=== PATIENT | male | born 1970 | race Caucasian/White ===

== ENCOUNTER 2019-03-29 16:43 | Emergency (ER) | payer MEDICAID ==
[~2019-03-29] VITALS: Ht 172.7 cm; Wt 79.1 kg
[2019-03-29 17:03] VITALS: Ht 172.7 cm; Wt 79.1 kg
[2019-03-29] MEDS ORDERED: LISINOPRIL20 MG PO (17:05)
[2019-03-29] MEDS ORDERED: HYDROCHLOROTH12.5 M1 PO (17:05)
[2019-03-29] MEDS ORDERED: HYDROCODON-ACE1 EAC7 PO (21:18)
[2019-03-29 21:58] VITALS: BP 135/89
== END 2019-03-29 22:00 | disposition home or self-care (01) ==
LOC: D.ER 16:43
DX: M25.552 Pain in left hip (principal); S76.012A Strain of muscle, fascia and tendon of left hip, initial encounter; X58.XXXA Exposure to other specified factors, initial encounter; Y93.89 Activity, other specified; Y92.89 Other specified places as the place of occurrence of the external cause

== ENCOUNTER 2020-01-15 10:33 | Observation (INO) | payer MEDICAID ==
[~2020-01-15] VITALS: Ht 172.7 cm; Wt 79.6 kg
[~2020-01-15 10:33] MED LIST: HYDROCHLOROTH12.5 M1 PO; HYDROCODON-ACE1 EAC7 PO; LISINOPRIL20 MG PO
[2020-01-15] MEDS ORDERED: ASPIRIN81 MG PO (10:42)
[2020-01-15 11:03] LABS: BASOPHILS 0.1 % (0-2); EOSINOPHILS 0.1 % (0-7); HEMATOCRIT 47.6 % (42.0-54.0); HEMOGLOBIN 16.2 g/dL (13.5-17.5); IMMATURE GRANULOCYTES 0.3 % (0-5); LYMPHOCYTES 5.8 % (15-50); MCH 32.5 pg (26.0-34.0); MCV 95.6 fL (80.0-100.0); MEAN PLATELET VOLUME 9.8 fL (7.4-10.4); MONOCYTES 4.1 % (2-11); NEUTROPHILS 89.6 % (40-80); PLATELET COUNT 281 10x3/uL (130-400); RBC 4.98 10x6/uL (4.20-6.10); RDW 13.5 % (11.5-14.5); WBC 16.4 10x3/uL (4.8-10.8)
[2020-01-15 11:06] LABS: CALC OSMOLALITY 282 mosm/kg (275-300); CALCIUM 9.1 mg/dL (8.5-10.1); CHLORIDE - SERUM 103 mmol/L (98-107); CREATININE - SERUM 1.2 mg/dL (0.6-1.3); GLUCOSE 125 mg/dL (74-106); POTASSIUM - SERUM 4.1 mmol/L (3.5-5.1); SODIUM 141 mmol/L (136-145); UREA NITROGEN 15 mg/dL (7-18); eGFR NON AFRICAN AMERICAN 68 mL/min (90-120)
[2020-01-15 11:20] LABS: BILIRUBIN NEGATIVE (NEGATIVE); GLUCOSE NEGATIVE (NEGATIVE); KETONE MODERATE mg/dL (NEGATIVE); NITRITE NEGATIVE (NEGATIVE); RED CELLS - URINE 0-5 /hpf (0-5); UROBILINOGEN NORMAL (NORMAL); WHITE CELLS - URINE 0-5 /hpf (NEGATIVE)
[2020-01-15 11:21] LABS: BACTERIA FEW /hpf (NEGATIVE); CALCIUM OXALATE CRYSTALS 0-5 /hpf (NONE SEEN); EPITHELIAL CELLS OCC /hpf (0-5)
[2020-01-15 11:24] LABS: ALBUMIN 3.9 g/dL (3.4-5.0); ALKALINE PHOSPHATASE 135 U/L (30-120); ALT (SGPT) 20 U/L (10-68); AMYLASE - SERUM 49 U/L (25-115); BILIRUBIN - TOTAL 0.46 mg/dL (0.2-1.3); LIPASE 87 U/L (73-393); PROTEIN - SERUM 7.4 g/dL (6.4-8.2); TROPONIN-I < 0.017 ng/mL (0.000-0.060)
[2020-01-15 12:00] VITALS: BP 136/96
--- NOTE | 2020-01-15 13:19 | NUR ---
CLEAR LIQUIDS GIVEN
[2020-01-15 14:00] VITALS: BP 139/96
[2020-01-15 15:30] VITALS: BP 135/91
--- NOTE | 2020-01-15 15:48 | NUR ---
REPORT TO JAIRON REBOLLAR
--- NOTE | 2020-01-15 16:00 | NUR ---
ADMIT TO ROOM # 2216, CONDITION STABLE
[2020-01-15 16:24] VITALS: BP 137/97; BMI 27.4
[2020-01-15 20:00] VITALS: BP 140/98
--- NOTE | 2020-01-15 20:00 | NUR ---
PT SITTING UP IN BED WITHOUT DISTRESS, AOX4. DENIES PAIN OR NAUSEA AT THIS TIME. TOLERATING CLEAR LIQUIDS. IV RIGHT FA INFUSING NS @ 100. DENIES NEEDS. CL IN REACH, WILL CTM
[2020-01-16] VITALS: BP 134/94
[2020-01-16 04:00] VITALS: BP 124/86
[2020-01-16 04:28] LABS: BASOPHILS 0.1 % (0-2); EOSINOPHILS 1.8 % (0-7); HEMATOCRIT 39.2 % (42.0-54.0); IMMATURE GRANULOCYTES 0.3 % (0-5); LYMPHOCYTES 25.2 % (15-50); MCH 31.5 pg (26.0-34.0); MCHC 32.7 g/dL (31.0-37.0); MCV 96.6 fL (80.0-100.0); MEAN PLATELET VOLUME 9.7 fL (7.4-10.4); NEUTROPHILS 65.6 % (40-80); RBC 4.06 10x6/uL (4.20-6.10); RDW 13.6 % (11.5-14.5)
[2020-01-16 04:34] LABS: HEMOGLOBIN 12.8 g/dL (13.5-17.5); PLATELET COUNT 224 10x3/uL (130-400)
[2020-01-16 04:51] LABS: CALCIUM 7.6 mg/dL (8.5-10.1); CARBON DIOXIDE 26.9 mmol/L (21.0-32.0); CHLORIDE - SERUM 106 mmol/L (98-107); GLUCOSE 102 mg/dL (74-106); SODIUM 139 mmol/L (136-145); eGFR NON AFRICAN AMERICAN 84 mL/min (90-120)
[2020-01-16 04:54] LABS: CALC OSMOLALITY 276 mosm/kg (275-300); UREA NITROGEN 10 mg/dL (7-18)
[2020-01-16 04:55] LABS: POTASSIUM - SERUM 2.9 mmol/L (3.5-5.1)
--- NOTE | 2020-01-16 07:49 | NUR ---
PT SITTING UP IN BED WATCHING TV, ALERT AND ORIENTED. IV LOCATED TO RIGHT AC RUNNING NS @ 100ML/HR. NO CURRENT S/S OF DISTRESS, DENIES CURRENT NEEDS, WILL CONT TO MONITOR.
[2020-01-16 09:28] VITALS: BP 139/101
[2020-01-16 13:43] VITALS: BP 137/99
[2020-01-16 16:53] VITALS: Ht 172.7 cm; Wt 79.6 kg
[2020-01-16] MEDS ORDERED: FLAGYL500 MG PO (16:55)
[2020-01-16] MEDS ORDERED: LEVAQUIN750 MG PO (16:55)
[2020-01-16] MEDS ORDERED: ZOFRAN4 MG PO (16:55)
--- NOTE | 2020-01-16 17:42 | MORECARE ---
CASE MANAGEMENT DISCHARGE SUMMARY PATIENT: BILL CARLSON UNIT: [id number] ADM DATE: 01/15/20 AGE: 49 : 68 SEX: M ROOM/BED: D.2216 AUTHOR: LEONCIO YEE PHYSICIAN: REFERRING PHYSICIAN: SABINA STRAUSS MD DATE OF SERVICE: 01/16/20 Discharge Plan Patient Name: BILL CARLSON [facility] [facility] 1970 Planned Disposition: Home or Self Care Anticipated Discharge Date: Discharge Date: Expected LOS: Initial Reviewer: [email or web address] Initial Review Date: 01/15/2020 Generated: 01/16/20 6:42 pm DCP- Discharge Planning Updated by [email or web address]: Svetlana Franco on 01/16/20 4:[address] PATIENT TO BE DISCHARGED TODAY, HE NEEDS A CARDIAC MRI. [facility] AND [facility] ARE THE ONLY ONES I KNOW OF WHO DO THEM, I SPOKE WITH PATIENT AND HE WOULD LIKE TO TRY [facility]. I CALLED THERE AND SPOKE WITH STEPHY. SHE STATED THAT DR DIAS WILL HAVE TO FILL OUT A INFORMATION SHEET AND I THEN WILL NEED TO FAX IT BACK TO THEM AND THEN THEY WOULD SCHEDULE IT. I EXPLAINED THIS TO THE PATIENT AND HIS SPOUSE OF THE ABOVE AND THEY UNDERSTAND THAT I WILL BE CALLING HIM WITH AN APPT TIME, I HOPE TOMORROW. I ALSO GAVE HIM MY BUSINESS CARD SO HE WOULD HAVE MY CONTACT. I LET IVANA PERES APN AWARE OF THIS TO MAKE SURE HE WAS OK WITH THAT AND HE WAS. I WILL FOLLOW UP WITH THE [facility] TOMORROW MORNING Patient Name: BILL CARLSON Page [phone] at 1742 All edits/amendments must be made on the electronic document DICTATION DATE: 01/16/201741 FUNERAL HOME ASSISTANT: KENYATTA 01/16/201741 RPT#: [id number] DC DATE: STATUS: ADM IN [facility] [address] [place] [address] END OF REPORT
--- NOTE | 2020-01-17 03:02 | EC ---
PATIENT:BILL CARLSON DATE OF SERVICE: 01/15/20 SEX: M MEDICAL RECORD: [id number] DATE OF : 68 LOCATION:D.MS Odell221 AGE OF PATIENT: 49 ADMISSION DATE: 01/15/20 REFERRING PHYSICIAN: INTERPRETING PHYSICIAN: XU OLSEN MD ECHOCARDIOGRAM REPORT ECHO CHARGES 4 ECHO COMPLETE Date: 01/16/20 CLINICAL DIAGNOSIS: ABNORMAL IMAGINA/MASS ECHOCARDIOGRAPHIC MEASUREMENTS (adult normal given) AC root (d.<3.7cm) 4.2 cm LV Septum d (<1.2 cm> 1.2 cm Valve Excursion 1.8 cm LV Septum (systole) 1.7 cm Left Atria (s.<4.0cm> 2.7 cm LVPW d(<1.2cm) 1.1 cm RV (d.<2.3cm) 3.3 cm LVPW (sytole) 1.8 cm LV diastole(<5.6CM) 5.2 cm MV E-F(>70mm/sec) cm LV systole 3.4 cm LVOT Diameter 2.1 cm MV exc.(>10mm) cm Est.ejection fraction (50-75%) % DOPPLER: LVIT cm/sec A 100 cm/sec E 55.0 cm/sec LA cm/sec RVSP 17.2 mmHg LVOT 95.0 cm/sec AOP1/2T m/s Asc. Ao 149 cm/sec RVOT 51.0 cm/sec RA cm/sec PA 69.0 cm/sec AV Gradient Peak 8.9 mmHg AV Mean 4.8 mmHg AV Area 1.8 cm MV Gradient Peak 4.9 mmHg MV Mean 2.6 mmHg MV Area cm COMMENTS: Appliance Repair Technician: 1 AUGUSTINE SNEEDOE Battery Tester: 3 Dr. Parsons TAPE# PACS Pericardial Effusion N DATE OF SERVICE: Adequate 2D, color flow imaging, spectral Doppler, and M-Mode. LVH is present. LV internal dimensions are normal. Wall motion is normal. EF is greater than or equal to 55%. Aortic valve is tricuspid. No evidence of stenosis by Doppler interrogation. Left atrium is normal. Mitral valve shows no prolapse. Trivial MR. Right-sided chambers are grossly normal. Trivial TR. Incidental note is made of an interatrial septal bowing without shunt seen at the atrial or ventricular level. Either bronchogenic retention cyst or ECHOCARDIOGRAM REPORT [id number] BILL CARLSON pericardial cyst is noted adjacent to the right atrium. There is no hemodynamic significance. NTS:[id number] Voice Confirmation ID: [id number] DOCUMENT ID: [id number] XU OLSEN MD at 0302 CC: [id number] DICTATION DATE: 01/16/20 1607 WILD ANIMAL CARETAKER: 01/17/20 0159 DIS IN 01/16/20 [address] [place] [address]
--- NOTE | 2020-01-17 09:04 | MORECARE ---
CASE MANAGEMENT DISCHARGE SUMMARY PATIENT: BILL CARLSON UNIT: [id number] ADM DATE: 01/15/20 AGE: 49 : 68 SEX: M ROOM/BED: D.2216 AUTHOR: LEONCIO YEE PHYSICIAN: REFERRING PHYSICIAN: SABINA STRAUSS MD DATE OF SERVICE: 01/17/20 Discharge Plan Patient Name: BILL CARLSON Facility: [facility]:[place] : 1970 Planned Disposition: Home or Self Care Anticipated Discharge Date: Discharge Date: 01/16/2020 Expected LOS: Initial Reviewer: [email or web address] Initial Review Date: 01/15/2020 Generated: 01/17/20 10:04 am DCP- Discharge Planning Updated by [email or web address]: Svetlana Franco on 01/16/20 4:[address] PATIENT TO BE DISCHARGED TODAY, HE NEEDS A CARDIAC MRI. [facility] AND [facility] ARE THE ONLY ONES I KNOW OF WHO DO THEM, I SPOKE WITH PATIENT AND HE WOULD LIKE TO TRY [facility]. I CALLED THERE AND SPOKE WITH STEPHY. SHE STATED THAT DR DIAS WILL HAVE TO FILL OUT A INFORMATION SHEET AND I THEN WILL NEED TO FAX IT BACK TO THEM AND THEN THEY WOULD SCHEDULE IT. I EXPLAINED THIS TO THE PATIENT AND HIS SPOUSE OF THE ABOVE AND THEY UNDERSTAND THAT I WILL BE CALLING HIM WITH AN APPT TIME, I HOPE TOMORROW. I ALSO GAVE HIM MY BUSINESS CARD SO HE WOULD HAVE MY CONTACT. I LET IVANA PERES APN AWARE OF THIS TO MAKE SURE HE WAS OK WITH THAT AND HE WAS. I WILL FOLLOW UP WITH THE [facility] TOMORROW MORNING Last DP export: 01/16/20 4:42 pm Patient Name: BILL CARLSON Page [phone] at 0904 All edits/amendments must be made on the electronic document DICTATION DATE: 01/17/20903 REFERENCE INVESTIGATOR: KENYATTA 01/17/20903 RPT#: [id number] DC DATE:01/16/20 STATUS: DIS IN [facility] [address] [place] [address] END OF REPORT
--- NOTE | 2020-01-17 15:00 | MORECARE ---
CASE MANAGEMENT DISCHARGE SUMMARY PATIENT: BILL CARLSON UNIT: [id number] ADM DATE: 01/15/20 AGE: 49 : 68 SEX: M ROOM/BED: D.2216 AUTHOR: LEONCIO YEE PHYSICIAN: REFERRING PHYSICIAN: SABINA STRAUSS MD DATE OF SERVICE: 01/17/20 Discharge Plan Patient Name: BILL CARLSON Facility: [facility]:[place] : 1970 Planned Disposition: Home or Self Care Anticipated Discharge Date: Discharge Date: 01/16/2020 Expected LOS: Initial Reviewer: [email or web address] Initial Review Date: 01/15/2020 Generated: 01/17/20 3:59 pm Comments DCP- Discharge Planning Updated by [email or web address]: Svetlana Franco on 01/17/20 1:[address] I have set patients cardiac MRI with [facility] CONF# [id number] for January 19 @ 0800 I spoke with Sabine and faxed everything to [phone] I also called the patient to let him know I also called Dr Diaz and let him know that it was set up DCP- Discharge Planning Updated by [email or web address]: Svetlana Franco on 01/16/20 4:[address] PATIENT TO BE DISCHARGED TODAY, HE NEEDS A CARDIAC MRI. [facility] AND [facility] ARE THE ONLY ONES I KNOW OF WHO DO THEM, I SPOKE WITH PATIENT AND HE WOULD LIKE TO TRY [facility]. I CALLED THERE AND SPOKE WITH STEPHY. SHE STATED THAT DR DIAS WILL HAVE TO FILL OUT A INFORMATION SHEET AND I THEN WILL NEED TO FAX IT BACK TO THEM AND THEN THEY WOULD SCHEDULE IT. I EXPLAINED THIS TO THE PATIENT AND HIS SPOUSE OF THE ABOVE AND THEY UNDERSTAND THAT I WILL BE CALLING HIM WITH AN APPT TIME, I HOPE TOMORROW. I ALSO GAVE HIM MY BUSINESS CARD SO HE WOULD HAVE MY CONTACT. I LET IVANA PERES APN AWARE OF THIS TO MAKE SURE HE WAS OK WITH THAT AND HE WAS. I WILL FOLLOW UP WITH THE [facility] TOMORROW MORNING Last DP export: 01/17/20 8:05 am Patient Name: BILL CARLSON Page [phone] at 1500 All edits/amendments must be made on the electronic document DICTATION DATE: 01/17/201458 DISCOTHEQUE DANCER: KENYATTA 01/17/201458 RPT#: [id number] DC DATE:01/16/20 STATUS: DIS IN [facility] [address] [place] [address] END OF REPORT
== END 2020-01-16 18:06 | disposition home or self-care (01) ==
LOC: D.ER 10:33 → D.MS 13:17 → OBSVTIME 16:00 → D.MS 01-16 18:06
PROVIDERS: Family Medicine; ADMIT Family Medicine; ATTEND Family Medicine
DX: K52.9 Noninfective gastroenteritis and colitis, unspecified (principal); I10 Essential (primary) hypertension; F17.200 Nicotine dependence, unspecified, uncomplicated; R10.9 Unspecified abdominal pain; E78.5 Hyperlipidemia, unspecified

== ENCOUNTER → 2020-02-12 08:39 | Outpatient (CLI) | payer MEDICAID ==
[2020-01-16 16:53] VITALS: BMI 27.4
[~2020-02-12 08:39] MED LIST changes: +ASPIRIN81 MG PO; +FLAGYL500 MG PO; +LEVAQUIN750 MG PO; +ZOFRAN4 MG PO
== END | disposition home or self-care (01) ==
LOC: D.HCCARDIO 08:30
PROVIDERS: ATTEND Internal Medicine Cardiovascular Disease
DX: I20.9 Angina pectoris, unspecified (principal)

== ENCOUNTER 2020-02-24 06:36 | Outpatient (CLI) | payer MEDICAID ==
[~2020-02-24] VITALS: Ht 172.7 cm; Wt 76.2 kg
--- NOTE | ~2020-02-24 | HEMODYNAMI ---
PATIENT:BILL CARLSON MEDICAL RECORD: [id number] : 68 LOCATION:DEMRE ADMISSION DATE: 02/24/20 Generatedon:02/24/20209:02 Patient name: BILL CARLSON Patient #: [id number] : 1970 Date of study: 02/24/2020 Page: Of Hemodynamic Procedure Report Patient Data Patient Demographics Procedure consent was obtained First Name: BILL Gender: Male Last Name: ALDO : 1970 Patient #: [id number] Age: 49 year(s) Race: Unknown SSN: [id number] Additional ID: [id number] Contact details Address: [address] [place] [address] State: [place] City: [facility] [place] Zip code: [address] Past Medical History Allergies Allergen Reaction Date Comments Reported Other allergy 02/24/2020 PCN, SULFA Admission Admission Data Admission Date: 02/24/2020 Admission Time: 6:36 Arrival Date: 02/24/2020 Arrival Time: 0:00 Admit Source: Other Insurance Payor: Private health insurance [facility] #: [id number] Height (in.): 67.72 BSA: 1.89 (m2) Height (cm.): 172 BMI: 25.69 (kg/m2) Weight (lbs.): 167.55 Weight (kg.): 76 Lab Results Lab Result Date: 02/24/2020 Lab Result Time: 0:00 Biochemistry Name Units Result Min Max BUN mg/dl 12 --(-*--)-- 7 18 Creatinine mg/dl 0.9 --(-*--)-- 0.6 1.3 CBC Name Units Result Min Max Hemoglobin g/dl 15.7 --(--*-)-- 13.5 17.5 Procedure Procedure Types Cath Procedure Diagnostic Procedure LHC LHC w/Coronaries Sedation Charges Moderate Sedation up to 15 minutes Procedure Description Procedure Date Procedure Date: 02/24/2020 Procedure Start Time: 8:46 Procedure End Time: 8:58 Procedure Staff Name Function Roly Reeves MD Performing Physician Cristopher Lopes RN Nurse Olga Cobb RT Scrub Randolph Downey RT Monitor Procedure Data Cath Procedure Fluoroscopy Diagnostic fluoroscopy Total fluoroscopy Time: 1.5 time: 1.5 min min Diagnostic fluoroscopy Total fluoroscopy dose: 409 dose: 409 mGy mGy Contrast Material Contrast Material Type Amount (ml) Isovue 300 71 Entry Location Entry Primary Successful Side Size Upsize Upsize Entry Closure Succes sful Closure Location (Fr) 1 (Fr) 2 (Fr) Remarks Device Remarks Femoral Right 5 Fr Exoseal artery Estimated blood loss: 5 ml Diagnostic catheters Device Type Used For End Catheter Placement MULTIPACK JL 4.0 5Fr Procedure catheter MULTIPACK 3DRC 5Fr Procedure catheter MULTIPACK Pigtail 5 Fr Procedure catheter Procedure Complications No complications Procedure Medications Medication Administration Route Dosage 0.9% NaCl I.V. 100 ml/hr Oxygen etCO2 Nasal cannula 2 l/min Heparin Flush Bag added to field 2 bags (1000units/500ml NS) Lidocaine 2% added to field 20 Versed I.V. 2 mg Fentanyl I.V. 100 mcg Benadryl I.V. 50 mg Hemodynamics Rest BSA: 1.89 (m2) HGB: 15.7 (g/dl) O2 Consumption: Estimated: 230.14 (ml/min) O2 Co nsumption indexed: Estimated:121.77 (ml/min/m) Heart Rate: 76 (bpm) Pressure Samples Time Site Value (mmHg) Purpose Heart Use Rate(bpm) 8:51 LV 96/0,2 Snapshot 78 8:52 AO 103/66(81) Pullback 77 8:52 LV 91/2,3 Pullback 77 Gradients Valve Time Site 1 Site 2 Mean SEP/DFP Peak To Heart Use (mmHg) (sec/min) Peak Rate (mmHg) (bpm) Aortic 8:52 LV AO 0 4 0 77 91/2,3 103/66(81) Calculations Valve P-P Mean Valve Index Valve Source Name Gradient Area Flow (cm2) Aortic 0 0 0 0 Snapshots Pre Cath Intra NCS Post Cath Vital Signs Time Heart Resp SPO2 etCO2 NIBP (mmHg) Rhythm Pain Sedation Rate (ipm) (%) (mmHg) Status Level (bpm) 8:31:20 82 7 99 25.4 117/89(103) NSR 0 (11) 10(A) , No pain 8:35:22 79 14 97 40.4 115/90(101) NSR 0 (11) 10(A) , No pain 8:39:24 88 31 92 41.1 121/92(96) NSR 0 (11) 10(A) , No pain 8:43:30 78 25 94 42.6 120/87(100) NSR 0 (11) 10(A) , No pain 8:47:37 76 19 95 12.7 111/81(95) NSR 0 (11) 9(A) , No pain 8:51:41 77 25 93 37.4 125/81(93) NSR 0 (11) 9(A) , No pain 8:55:47 77 20 93 41.1 116/78(103) NSR 0 (11) 10(A) , No pain Medications Time Medication Route Dose Verified Delivered Reason Notes Effe ctiveness by by 8:34:17 0.9% NaCl I.V. 100 Cristopher Cristopher Per ml/hr Marianne Lopes physician RN RN 8:34:29 Oxygen etCO2 2 Cristopher Cristopher for low 02 Nasal l/min Lorigan Lorigan sats cannula RN RN 8:34:41 Heparin Flush added 2 Cristopher Cristopher used for Bag to bags Lorigan Marianne procedure (1000units/500ml field RN RN NS) 8:34:52 Lidocaine 2% added 20ml Cristopher Cristopher for local to vial Lorigan Lorigan anesthetic field RN RN 8:41:59 Versed I.V. 2 mg Cristopher Cristopher for Lorigan Lorigan sedation RN RN 8:42:09 Fentanyl I.V. 100 Cristopher Cristopher for mcg Lorigan Lorigan sedation RN RN 8:42:22 Benadryl I.V. 50 mg Cristopher Cristopher Per Marianne Lopes physician RN wire rope fabrication supervisor Log Time Note 8:07:21 Cristopher Lopes RN sent for patient. Start room use. 8:07:57 Arrival Date: 02/24/2020 12:00:00 AM 8:08:11 Admit Source: Other 8:08:16 Insurance Payor : Private health insurance 8:08:41 Patient Height : 67.72 inches 8:08:45 Patient Weight : 167.55 lbs 8:09:10 Lab Result : BUN 12 mg/dl 8:09:10 Lab Result : Creatinine 0.9 mg/dl 8:09:10 Lab Result : Hemoglobin 15.7 g/dl 8:11:52 Procedure Status Elective Heart Cath (OP). 8:11:54 Time tracking: Regular hours (M-F 7:00 - 5:00) 8:11:59 Plan of Care:Hemodynamics will remain stable., Cardiac rhythm will remain stable., Comfort level will be maintained., Respiratory function will remain adequate., Patient/ family verbilizes understanding of procedure., Procedure tolerated without complication., Recovers from procedure without complications.. 8:12:07 Patient received from Pre/Post Procedure Room to CCL 1 Alert and oriented. Tansferred to table in Supine position. 8:12:10 Signed procedure consent form obtained from patient. 8:12:12 Warm blankets applied, and zandra hugger turned on for patient comfort. 8:12:14 Correct patient and procedure confirmed by team. 8:30:16 ECG and BP/O2 sat monitors applied to patient. 8:30:18 Vital chart was started 8:30:20 Baseline sample Acquired. 8:30:23 Rhythm: sinus rhythm 8:31:48 Full Disclosure recording started 8:32:06 H&P Date Dictated: 01/30/2020 Within 30 days and on chart., H&P Addendum completed by physician on day of procedure. (MUST COMPLETE FOR ALL OUTPATIENTS). 8:32:07 Pre-procedure instructions explained to patient. 8:32:07 Pre-op teaching completed and patient verbalized understanding. 8:32:09 Family in waiting room. 8:32:11 Patient NPO since Midnight. 8:34:17 0.9% NaCl 100 ml/hr I.V. was administered by Cristopher Lopes RN; Per physician; Verbal order read back and verified. 8:34:29 Oxygen 2 l/min etCO2 Nasal cannula was administered by Cristopher Lopes RN; for low 02 sats; Verbal order read back and verified. 8:34:41 Heparin Flush Bag (1000units/500ml NS) 2 bags added to field was administered by Cristopher Lopes RN; used for procedure; Verbal order read back and verified. 8:34:52 Lidocaine 2% 20ml vial added to field was administered by Cristopher Lopes RN; for local anesthetic; Verbal order read back and verified. 8:36:47 Patient allergic to Other allergyPCN, SULFA 8:36:52 Is the patient allergic to Iodine/contrast media? No. 8:36:53 Is patient on blood thinner?No 8:36:55 Patient diabetic? No. 8:36:58 Previous problem with sedation/anesthesia? No ? 8:37:00 Snore? Yes 8:37:01 Sleep apnea? No 8:37:02 Deviated septum? No 8:37:02 Opens mouth fully? Yes 8:37:03 Sticks out tongue? Yes 8:37:04 Airway obstruction? No ? 8:37:09 Dentures? No ? 8:37:15 Pre procedure: right posterior tibial pulse 2+ Normal; easily identifiable; not easily obliterated 8:37:17 Modified Hieu's test Ulnar > 7 seconds. 8:37:19 Patient pain scale 0/10 ?. 8:37:27 IV patent on arrival in left forearm with 0.9% NaCl at [facility]. 8:37:42 Lab results completed and on chart. 8:40:51 Risk of Mortality: 0.1% 8:40:54 Risk of blood transfusion: 0.3% 8:40:57 Risk of SEVERIANO: 0.2% 8:41:02 Right groin area was prepped with chlora-prep and draped in sterile fashion 8:41:04 Alarms reviewed by R. N. 8:41:05 Sharps counted by scrub and verified by R.N. 8:41:08 Use device set Femoral Dx 8:41:09 ACIST Syringe (63903) opened to sterile field. 8:41:09 Bag Decanter (2002) opened to sterile field. 8:41:10 Medline Cath Pack ([id number]) opened to sterile field. 8:41:11 ACIST Hand Control (10756) opened to sterile field. 8:41:11 ACIST Manifold (27772) opened to sterile field. 8:41:12 Tegaderm 4 x 4 (1626W) opened to sterile field. 8:41:12 DIAGNOSTIC Multipack 5Fr catheter set (IP6063) opened to sterile field. 8:41:14 SHEATH 5FR [place] (DFB958) opened to sterile field. 8:41:14 EMERALD Guide Wire (502-455) opened to sterile field. 8:41:21 Physician arrived 8:: --------ALL STOP TIME OUT------ 8:41:22 Final Timeout: patient, procedure, and site verified with staff and physician. All members of the team are in agreement. 8:41:23 Right groin site verified by team. 8:41:26 Fire Safety Assessment: A--An alcohol-based skin anteseptic being used preoperatively., C--Open oxygen or nitrous oxide is being used., D--An ESU, laser, or fiber-optic light is being used. 8:41:28 Physical assessment completed. ASA score P 2 - A patient with mild systemic disease as per Roly Reeves MD. 8:41:34 1) 90+ Normal kidney functon but urine findings or structural abnormalities or genetic trait point to kidney disease. 8:41:36 Maximum allowable contrast dose (3.7 X eGFR X 0.75)250 ml. 8:41:39 Sedation plan: IV Moderate Sedation Medication:Versed, Fentanyl 8:41:59 Versed 2 mg I.V. was administered by Cristopher Lopes RN; for sedation; Verbal order read back and verified. 8:42:09 Fentanyl 100 mcg I.V. was administered by Cristopher Lopes RN; for sedation; Verbal order read back and verified. 8:42:22 Benadryl 50 mg I.V. was administered by Cristopher Lopes RN; Per physician; Verbal order read back and verified. 8:44:02 Zero performed for pressure channel P1 8:44:09 Zero performed for pressure channel P1 8:44:26 Zero performed for pressure channel P1 8:44:39 Zero performed for pressure channel P1 8:46:41 Procedure started. 8:46:44 Local anesthetic to right femoral artery with Lidocaine 2% by Roly Reeves MD.INITIAL ACCESS ONLY 8:46:50 A 5 Fr sheath was inserted into the Right Femoral artery 8:46:54 A MULTIPACK JL 4.0 5Fr catheter was advanced over the wire and used for Procedure. 8:46:56 LCA angiography performed. 8:46:57 Catheter exchanged over wire. 8:47:01 A MULTIPACK 3DRC 5Fr catheter was advanced over the wire and used for Procedure. 8:47:06 RCA angiography performed. 8:49:55 Catheter exchanged over wire. 8:49:59 A MULTIPACK Pigtail 5 Fr catheter was advanced over the wire and used for Procedure. 8:51:41 LV gram done using SNELL 8::43 Injector settings: Ml/sec: 10, Volume: 20, 8:51:45 LV hemodynamics recorded. 8:52:05 EF : 55 % 8:52:06 Catheter removed. 8:53:33 EXOSEAL 5Fr (EX500) opened to sterile field. 8:53:43 Sheath removed intact; hemostasis achieved with Exoseal to the Right Femoral artery. 8:53:45 Procedure ended.(Physican Out) 8:54:51 Fluoroscopy time 01.50 minutes. 8:54:55 Flurop Dose total: 409 8:54:55 Fluoroscopy dose: 409 mGy 8:55:00 Dose Area Product 77666 mGy/cm. 8:55:11 Contrast amount:Isovue 300 71ml. 8:55:13 Maximum allowable dose exceeded? No. 8:55:14 Sharps counted by scrub and verified by R.N. 8:55:15 Insertion/operative site no bleeding no hematoma. 8:55:17 Post-op/insertion site Right Femoral artery dressed using a 4 x 4 and Tegaderm. 8:55:20 Post right femoral artery:stable, soft, clean and dry 8:55:21 Post Procedure Pulses reassessed and unchanged 8:55:23 Post-procedure physical assessment completed. ASA score P 2 - A patient with mild systemic disease as per Roly Reeves MD. 8:55:25 Post procedure rhythm: unchanged. 8:55:27 Estimated blood loss: 5 ml 8:55:29 Post procedure instruction explained to patient.Patient verbalizes understanding. 8:55:29 Patient needs reinforcement of post procedure teaching. 8:56:16 Procedure type changed to Cath procedure, Diagnostic procedure, LHC, [facility] w/Coronaries, Sedation Charges, Moderate Sedation up to 15 minutes 8:58:06 Procedure and supply charges have been captured, reviewed, submitted and are correct. 8:58:09 Procedure Complication : No complications 8:58:10 Vital chart was stopped 8:58:12 [facility] Findings: MVD- CABG consult 8:58:15 Operative report dictated upon procedure completion. 8:58:16 See physician's report for complete and final results. 8:58:17 Report given to Pre/Post Procedure Room. 8:58:23 Patient transfered to Pre/Post Procedure Room with Stretcher. 8:58:25 Procedure ended. 8:58:25 Full Disclosure recording stopped 8:58:30 End room use (Document Last) Device Usage Item Name Manufacture Quantity Catalog Hospital Part Current Minimal L ot# / Number Charge Number Stock Stock Serial# Code ACIST Acist 1 21578 [id number] 249630 [id number] 20 Syringe Medical (04383) Systems Inc Bag Microtek 1 2001S 189458 65382 930122 5 Decanter Medical Inc. () Medline Medline 1 [id number] 641128 12704 723569 5 Cath Pack ([id number]) ACIST Hand Acist 1 44666 619720 280879 452590 5 Control Medical (25474) Systems Inc ACIST Acist 1 80197 703751 758472 099996 5 Manifold Medical (20594) Systems Inc Tegaderm 4 3M 1 1626W 057454 870053 929630 5 x 4 (1626W) DIAGNOSTIC Cardinal 1 EE8798 432257 47448 576220 30 Multipack Health 5Fr catheter set (GH2294) SHEATH 5FR Terumo 1 MET423 612705 559708 149644 5 [place] (MTF856) EMERALD Cardinal 1 502-455 069884 155123 920219 5 Guide Wire [facility] (502-455) MULTIPACK Cardinal 1 764580 5 JL 4.0 5Fr Health catheter MULTIPACK Cardinal 1 127446 5 3DRC 5Fr Health catheter MULTIPACK Cardinal 1 040218 5 Pigtail 5 Health Fr catheter EXOSEAL 5Fr Cardinal 1 EX500 954405 647580 486640 10 (EX500) Health Signature Audit [place] Stage Time Signature Unsigned Intra-Procedure 02/24/2020 Cristopher 9:01:34 AM Marianne RN; Randolph Downey RT(R); Roly Reeves MD [address] [place] [address]
[2020-02-24] MEDS ORDERED: MULTI-DAY VITAM1 TAB PO (06:55)
[2020-02-24] MEDS ORDERED: OMEGA-3100 MG PO (06:55)
[2020-02-24 07:22] LABS: HEMATOCRIT 46.4 % (42.0-54.0); HEMOGLOBIN 15.7 g/dL (13.5-17.5); LYMPHOCYTES 22.2 % (15-50); MCHC 33.8 g/dL (31.0-37.0); MCV 94.7 fL (80.0-100.0); MEAN PLATELET VOLUME 9.2 fL (7.4-10.4); NEUTROPHILS 72.7 % (40-80); PLATELET COUNT 245 10x3/uL (130-400); RDW 12.9 % (11.5-14.5); WBC 8.4 10x3/uL (4.8-10.8)
[2020-02-24 07:24] VITALS: BP 108/83; BMI 25.5
[2020-02-24 07:36] LABS: ALT (SGPT) 22 U/L (10-68); CALC OSMOLALITY 282 mosm/kg (275-300); CALCIUM 8.5 mg/dL (8.5-10.1); CARBON DIOXIDE 28.1 mmol/L (21.0-32.0); CHLORIDE - SERUM 106 mmol/L (98-107); CHOL - HDL RATIO 4.8 ratio (2.3-4.9); CHOLESTEROL, TOTAL 163 mg/dL (0-200); CREATININE - SERUM 0.9 mg/dL (0.6-1.3); GLUCOSE 101 mg/dL (74-106); HDL CHOLESTEROL 34 mg/dL (32-96); LDL CHOLESTEROL 99 mg/dL (0-100); LDL-HDL RATIO 2.9 ratio (1.5-3.5); POTASSIUM - SERUM 3.7 mmol/L (3.5-5.1); SODIUM 142 mmol/L (136-145); TRIGLYCERIDE 150 mg/dL (30-200); UREA NITROGEN 12 mg/dL (7-18); eGFR NON AFRICAN AMERICAN > 90 mL/min (90-120)
--- NOTE | 2020-02-24 09:16 | NUR ---
PT RECEIVED VIA STRETCHER FROM TOOL RADIAL DRILL PRESS SET UP OPERATOR FOR RECOVERY. PT SLEEPING, BUT VERBALLY AROUSALBE. IV PATENT INFUSING VIA L ARM PER ORDERS. PT PLACED ON CARDIAC MONITORS AND O2 VIA NC AT 2L. HR NSR RATE 80, BP 102/77, RR 17, SAT 98. 5FR EXOCELE TO R GROIN, DRESSING CDI NO S/S HEMATOMA OR BLEEDING NOTED. LEG PINK AND WARM, PEDAL PULSES PALPABLE. CALL LIGHT IN REACH
--- NOTE | 2020-02-24 09:30 | NUR ---
PT RESTING COMFORTABLY, DENIES PAIN OR NEEDS. R GROIN SOFT, DRESSING CDI NO S/S HEMATOMA. VSS. CALL LIGHT IN REACH
--- NOTE | 2020-02-24 10:02 | NUR ---
R GROIN SOFT, DRESSING CDI NO S/S HEMATOMA OR BLEEDING. PT MORE AWAKE, HOB ELEVATED, PO FLUIDS GIVEN. PT DENIES PAIN OR DISCOMFORT. O2 REMOVED, SAT ON ROOM AIR 97. CALL LIGHT IN REACH
--- NOTE | 2020-02-24 11:02 | NUR ---
DISCHARGE INSTRUCTIONS REVIEWED W PT, HE VERBALIZED UNDERSTANDING. IV REMOVED W CATH INTACT, MONITORS REMOVED. GROIN SOFT, DRESSING CDI NO S/S HEMATOMA NOTED. PT UP TO DRESS FOR DISCHARGE. WAITING ON DR FITZGERALD TO DISCUSS POSSIBLE SURGERY.
--- NOTE | 2020-02-24 11:20 | NUR ---
DR. FITZGERALD AND HIS NURSE AT BS.
--- NOTE | 2020-02-24 11:42 | NUR ---
PT AMBULATED TO BR, VOIDED W/O DIFFICULITY. PT THEN DISCHARGED VIA TO FAMILY WAITING IN PRIVATE VEHICLE. PT HAD ALL BELONGINGS AND DISCHARGE PAPERWORK.
[2020-02-24 15:19] VITALS: Ht 172.7 cm; Wt 76.2 kg
--- NOTE | 2020-02-25 01:27 | OP ---
PATIENT NAME: BILL CARLSON MEDICAL RECORD: [id number] :68 LOCATION:D.CAT ADMISSION DATE: SURGEON: XU OLSEN MD DATE OF OPERATION: 02/24/2020 PROCEDURE: Left heart catheterization, selective coronary angiography, right femoral artery approach. CATHETERS: A 5-Kittitian sheath, 5/4 left and right Janis, 5/4 pig. The procedure was tolerated. The patient returned to the chan, sheath was removed. Adequate hemostasis and ExoSeal device placed. FINDINGS: Left ventriculography in 30-degree SNELL view: Normal wall motion and normal systolic function. CORONARY ANATOMY: LEFT MAIN: Left main is free of disease. LAD: Has some aneurysmal dilatation somewhat ectatic with an 80% stenosis in its mid portion. This is a smaller size LAD with diagonal being probably bigger diagonal, bigger diameter, not reaching the apex. CIRCUMFLEX: Small circumflex free of disease. RIGHT CORONARY ARTERY: Has a large proximal cardiac aneurysm with ROMAN flow distally. There is also a napkin ring lesion just past this. IMPRESSION: Large right coronary aneurysm. The LAD obviously is amenable to percutaneous intervention. However, I suspect the coronary aneurysm will need to be ligated and bypassed in the interim. We will talk with Dr. Hou about revascularization of the LAD either percutaneously or at the same time as ligation and bypassing the right. TRANSINT:[id number] Voice Confirmation ID: [id number] DOCUMENT ID: [id number] XU OLSEN MD at 0127 CC: [id number] DICTATION DATE: 02/24/20 0910 TILE MOLDER: 02/24/202006 DEP CLI 02/24/[address] [address]
== END 2020-02-24 11:40 | disposition home or self-care (01) ==
LOC: D.CATH 06:36
PROVIDERS: ATTEND Internal Medicine Interventional Cardiology
DX: I25.10 Atherosclerotic heart disease of native coronary artery without angina pectoris (principal); Z72.0 Tobacco use; E78.5 Hyperlipidemia, unspecified; I31.8 Other specified diseases of pericardium; I10 Essential (primary) hypertension

== ENCOUNTER 2020-03-05 09:53 | Inpatient (IN) | payer MEDICAID ==
[~2020-03-05] VITALS: Ht 172.7 cm; Wt 79.6 kg
[~2020-03-05 09:53] MED LIST changes: +MULTI-DAY VITAM1 TAB PO; +OMEGA-3100 MG PO
[2020-03-05] MEDS ORDERED: CHANTIX0.5 MG PO (10:37)
[2020-03-05 12:35] LABS: BILIRUBIN NEGATIVE (NEGATIVE); GLUCOSE NEGATIVE (NEGATIVE); KETONE NEGATIVE (NEGATIVE); NITRITE NEGATIVE (NEGATIVE); UROBILINOGEN NORMAL (NORMAL)
[2020-03-05 12:45] LABS: BASOPHILS 0.3 % (0-2); EOSINOPHILS 1.1 % (0-7); HEMATOCRIT 47.6 % (42.0-54.0); HEMOGLOBIN 15.8 g/dL (13.5-17.5); IMMATURE GRANULOCYTES 0.4 % (0-5); MCHC 33.2 g/dL (31.0-37.0); MCV 96.4 fL (80.0-100.0); MEAN PLATELET VOLUME 9.8 fL (7.4-10.4); MONOCYTES 5.8 % (2-11); NEUTROPHILS 70.4 % (40-80); PLATELET COUNT 247 10x3/uL (130-400); RBC 4.94 10x6/uL (4.20-6.10); RDW 13.3 % (11.5-14.5)
[2020-03-05 13:07] LABS: ALBUMIN 3.7 g/dL (3.4-5.0); ALKALINE PHOSPHATASE 127 U/L (30-120); ALT (SGPT) 25 U/L (10-68); BILIRUBIN - TOTAL 0.32 mg/dL (0.2-1.3); CALC OSMOLALITY 270 mosm/kg (275-300); CALCIUM 8.9 mg/dL (8.5-10.1); CARBON DIOXIDE 27.4 mmol/L (21.0-32.0); CHLORIDE - SERUM 103 mmol/L (98-107); CHOLESTEROL, TOTAL 163 mg/dL (0-200); CREATININE - SERUM 0.9 mg/dL (0.6-1.3); GLUCOSE 90 mg/dL (74-106); PHOSPHOROUS 3.9 mg/dL (2.5-4.9); POTASSIUM - SERUM 3.9 mmol/L (3.5-5.1); PROTEIN - SERUM 6.9 g/dL (6.4-8.2); SODIUM 136 mmol/L (136-145); T4 THYROXIN - FREE 1.26 ng/dL (0.76-1.46); THYROID STIMULATING HORMONE 1.47 uIU/mL (0.36-3.74); UREA NITROGEN 11 mg/dL (7-18); URIC ACID 4.9 mg/dL (2.6-7.2); eGFR NON AFRICAN AMERICAN > 90 mL/min (90-120)
[2020-03-05 13:38] LABS: INR 1.01 (0.85-1.17); PROTIME 13.2 SECONDS (11.6-15.0)
[2020-03-16] VITALS (46 sets, daily range): BP systolic 95–142; BP diastolic 45–100; BMI 25.7; BMI 24.1
[2020-03-16] MEDS ORDERED: VITAMIN C500 M1 PO (06:07)
[2020-03-16 06:13] LABS: BASOPHILS 0.2 % (0-2); EOSINOPHILS 1.6 % (0-7); HEMATOCRIT 45.2 % (42.0-54.0); HEMOGLOBIN 15.2 g/dL (13.5-17.5); IMMATURE GRANULOCYTES 0.1 % (0-5); LYMPHOCYTES 18.2 % (15-50); MCH 32.1 pg (26.0-34.0); MCHC 33.6 g/dL (31.0-37.0); MCV 95.6 fL (80.0-100.0); MEAN PLATELET VOLUME 9.6 fL (7.4-10.4); MONOCYTES 7.2 % (2-11); NEUTROPHILS 72.7 % (40-80); PLATELET COUNT 249 10x3/uL (130-400); RBC 4.73 10x6/uL (4.20-6.10); RDW 13.6 % (11.5-14.5); WBC 9.5 10x3/uL (4.8-10.8)
[2020-03-16 06:49] LABS: APTT 28.4 SECONDS (22.8-39.4); INR 0.97 (0.85-1.17); PROTIME 12.9 SECONDS (11.6-15.0)
[2020-03-16 06:54] LABS: ALBUMIN 3.6 g/dL (3.4-5.0); ALKALINE PHOSPHATASE 117 U/L (30-120); ALT (SGPT) 25 U/L (10-68); BILIRUBIN - TOTAL 0.25 mg/dL (0.2-1.3); CALC OSMOLALITY 284 mosm/kg (275-300); CALCIUM 8.9 mg/dL (8.5-10.1); CARBON DIOXIDE 25.5 mmol/L (21.0-32.0); CHLORIDE - SERUM 108 mmol/L (98-107); CHOLESTEROL, TOTAL 151 mg/dL (0-200); GLUCOSE 103 mg/dL (74-106); POTASSIUM - SERUM 3.8 mmol/L (3.5-5.1); PROTEIN - SERUM 6.8 g/dL (6.4-8.2); SODIUM 143 mmol/L (136-145); T4 THYROXIN - FREE 1.28 ng/dL (0.76-1.46); THYROID STIMULATING HORMONE 2.39 uIU/mL (0.36-3.74); UREA NITROGEN 13 mg/dL (7-18); URIC ACID 4.4 mg/dL (2.6-7.2); eGFR NON AFRICAN AMERICAN 84 mL/min (90-120)
--- NOTE | 2020-03-16 15:32 | NUR ---
RT AT BEDSIDE DECREASED RR ON VENT TO 4. PATIENT TOLERATING WELL. SPO2 99%, RESPIRATIONS 18 NON LABORED. NURSE AT BEDSIDE.
--- NOTE | 2020-03-16 15:45 | NUR ---
VENT CHANGED TO CPAP PER RT. PATIENT TOLERATING WELL. NURSE AT BEDSIDE. AT BEDSIDE.
--- NOTE | 2020-03-16 17:02 | NUR ---
RT AT BEDSIDE. INCENTIVE DONE REACHED 500-750. NO DISTRESS NOTED. NURSE AT BEDSIDE.9
--- NOTE | 2020-03-16 19:10 | NUR ---
PT RECEIVED WITH EYES CLOSED AND CHEST RISING. EASILY AWOKEN TO VERBAL STIMULI. RIGHT IJ WITH PLASMALYTE AT 100ML/HR AND AMIODARONE AT 0.5MG/MIN. CHEST TUBES ANTERIOR Y'D AND POSTERIOR SINGLE. CHINA DRAIN COMPRESSED. DRESSING C/D/I. DUARTE WITH CLEAR YELLOW URINE. VITAL SIGNS STABLE. N/C 4LPM. BEEN HAVING ICE CHIPS, ADVANCED TO WATER, TOLERATED WELL. WILL CONTINUE TO OBSERVE.
--- NOTE | 2020-03-16 21:25 | NUR ---
PT RECEIVE SCHEDULED MEDICATIONS PER MAR. PT UP WITH ASSIST TO BATHROOM WITH URINE AND LOOSE BM. DAUGHTER AT BEDSIDE. CALL LIGHT IN REACH. WILL CONTINUE TO OBSERVE.
--- NOTE | 2020-03-16 21:31 | NUR ---
CALLED, GAVE PASSCODE. UPDATE GIVEN. PT RESTING WITH EYES CLOSED OFF AND ON. VITAL SIGNS STABLE. CALL LIGHT IN REACH. WILL CONTINUE TO OBSERVE.
[2020-03-17] VITALS (41 sets, daily range): BP systolic 100–138; BP diastolic 59–88; Ht 172.7 cm; Wt 79.6 kg
[2020-03-17 00:33] LABS: BILIRUBIN NEGATIVE (NEGATIVE); GLUCOSE NEGATIVE (NEGATIVE); KETONE SMALL mg/dL (NEGATIVE); NITRITE NEGATIVE (NEGATIVE); UROBILINOGEN NORMAL (NORMAL)
--- NOTE | 2020-03-17 00:37 | NUR ---
URINE COLLECTED AND SENT TO LAB. VITALS STABLE. PT RESTING WITH EYES CLOSED AND CHEST RISING. EASILY AWOKEN TO VERBAL STIMULI. WILL CONTINUE TO OBSERVE.
--- NOTE | 2020-03-17 02:00 | NUR ---
PT SAT UP ON SIDE OF BED AND DANGLE FEET. BACK IN BED, TOLERATED WELL.
[2020-03-17 05:57] LABS: HEMATOCRIT 38.1 % (42.0-54.0); HEMOGLOBIN 12.4 g/dL (13.5-17.5); MCH 31.2 pg (26.0-34.0); MCHC 32.5 g/dL (31.0-37.0); MCV 95.7 fL (80.0-100.0); MEAN PLATELET VOLUME 9.7 fL (7.4-10.4); RBC 3.98 10x6/uL (4.20-6.10); RDW 14.2 % (11.5-14.5)
[2020-03-17 06:06] LABS: WBC 17.8 10x3/uL (4.8-10.8)
[2020-03-17 06:24] LABS: ALBUMIN 2.8 g/dL (3.4-5.0); ALKALINE PHOSPHATASE 72 U/L (30-120); ALT (SGPT) 19 U/L (10-68); BILIRUBIN - TOTAL 0.28 mg/dL (0.2-1.3); CALCIUM 7.4 mg/dL (8.5-10.1); CARBON DIOXIDE 23.2 mmol/L (21.0-32.0); CHLORIDE - SERUM 107 mmol/L (98-107); POTASSIUM - SERUM 3.7 mmol/L (3.5-5.1); PROTEIN - SERUM 5.4 g/dL (6.4-8.2); SODIUM 140 mmol/L (136-145); UREA NITROGEN 11 mg/dL (7-18); eGFR NON AFRICAN AMERICAN 84 mL/min (90-120)
[2020-03-17 06:26] LABS: CALC OSMOLALITY 281 mosm/kg (275-300); GLUCOSE 173 mg/dL (74-106)
--- NOTE | 2020-03-17 07:00 | NUR ---
PT UP TO CHAIR AT BEDSIDE. TOLERATED WELL.
--- NOTE | 2020-03-17 09:01 | NUR ---
0700 PT RECIEVED UP IN CHAIR, A LINE AND DUARTE DCD TIP INTACT, R IJ CVL DRESSING CDI, SEE IV FLOWSHEET, SUBSTERNAL TPM WIRES ATTACHED, TPM OFF, CT WITH 2 Y'D TOGETHER AND ONE SINGLE, BLOODY DRAINAGE, 20CM SUCTION NO AIR LEAK, CHINA DRAIN COMPRSSED WITH BLOODY DRAINAGE, RLE HARVEST SITES OPEN TO AIR, TEDS/SCDS IN PLACE, WILL CONTINUE TO MONITOR 0900 TOOK AM MEDS WITHOUT DIFFICULTY, ATE JELLO WITH BREAKFAST
--- NOTE | 2020-03-17 12:35 | OP ---
PATIENT NAME: BILL CARLSON MEDICAL RECORD: [id number] :68 LOCATION:D.CVI D.CV02 ADMISSION DATE:03/16/20 SURGEON: KIARA FITZGERALD MD DATE OF OPERATION: 03/16/2020 SURGEON: Kiara Fitzgerald MD PROCEDURES PERFORMED: 1. Coronary artery bypass graft times 2 (left internal mammary to LAD, reverse saphenous vein graft from aorta to posterior descending artery). 2. Repair and excision of right coronary artery aneurysm. 3. Endoscopic saphenous vein harvest. PREOPERATIVE DIAGNOSIS: Coronary artery disease and large right coronary artery aneurysm. POSTOPERATIVE DIAGNOSIS: Coronary artery disease and large right coronary artery aneurysm. ANESTHESIA: General endotracheal anesthesia. ESTIMATED BLOOD LOSS: Total cardiopulmonary bypass with Cell Saver retransfusion. COMPLICATIONS: None. SPECIMENS: Right coronary artery aneurysm free wall and thrombus. CONDITION: Stable. DISPOSITION: CV ICU. COMPLICATIONS: None. OPERATIVE FINDINGS: 1. Transesophageal echocardiography revealed good contractility, but left ventricular hypertrophy and dilated heart prior to cardiopulmonary bypass 6.7 cm left ventricular end-diastolic dimension, significantly reduced after cardiopulmonary bypass. 2. A 7 cm right coronary artery aneurysm with significant amount of thrombus and the central flow channel. The thrombus was removed, most of the free wall excised. Entry and exit point of the right coronary artery were severely calcified, not amenable to interposition graft at that point. Therefore, they were oversewn with pledgeted and running sutures and one small conal branch was oversewn with #7-0. The aneurysm cavity was later closed so it would not interfere with the right coronary graft. The right coronary was calcified throughout down past the bifurcation of the PDA and PL. Proximal portion of both of which were also calcified. PDA was a 1.5 mm vessel with severe disease, anastomosis and plaque. 3. Left internal mammary artery was a good conduit. The LAD was a 1.5 mm severely diseased vessel, calcified past the bifurcation of the large diagonal, so the anastomosis was taken off, the mid distal LAD, which was a 1.5 mm vessel with severe disease. Good Doppler signal after anastomosis, after reversal of OPERATIVE REPORT [id number] BILL CARLSON heparin to both grafts. 4. Severe bilateral lung hyperexpansion. 5. Small circumflex branches not amenable for bypass. Procedure indication is right coronary aneurysm and severe LAD stenosis as well as severe distal right coronary artery stenosis. DESCRIPTION OF PROCEDURE: The patient was brought to the operating suite. General anesthesia was obtained, the patient was prepped and draped. Greater saphenous vein harvested endoscopically of the right lower extremity. Side branches were divided with electrocautery. The vessel ligated proximally and distally and removed. Side branches were clipped and then sites were oversewn. The leg was irrigated and closed in 2 layers. Mediastinotomy incision was made. Subcutaneous tissue divided with electrocautery. The sternum was divided with a saw. Left hemisternum was elevated. Left lower gutter was entered. Left internal mammary and veins were taken down as a pedicle graft. Sternal retractor was placed. Pericardium was opened. Heparin was given. Aorta was cannulated. A dual stage venous cannula was able to be inserted into the right atrial appendage by slight upward traction on the aorta not disturbing the large right coronary artery aneurysm in the proximal vessel. The patient was cooled. Antegrade cardioplegic cannula was inserted. Crossclamp was placed. Cardioplegia was given antegrade and this repeated including down the completed vein graft at 15 to 20-minute intervals. The aneurysm was opened. Inflow and exit point were identified. Thrombus was removed. Thorough irrigation was undertaken and the only one conal branch was identified and oversewn. Inflow and outflow were oversewn with pledgeted and running sutures and were hemostatic when cardioplegia was given in the aorta. The distal anastomosis was performed in standard technique and internal mammary distal was also performed in a standard technique. The patient was rewarmed. Single proximal anastomosis was performed. Aortic root was de-aired. Proximal anastomosis tied down. Vein graft de-aired and flow restored. Proximal and distal anastomotic sites inspected for bleeding. The free wall of the aneurysm sac was removed and then the aneurysm cavity was closed. The patient was stable for rewarming, cardiopulmonary bypass. The patient was decannulated. The cannula sites were oversewn with pledgeted sutures. Protamine was given. Thorough irrigation was undertaken. Graft lay appropriately. Left chest was evacuated and irrigated. Right chest was suctioned. Drains were placed in both pleural cavity as well as the mediastinum. Atrial and ventricular pacing wires were placed. Pericardial fat was loosely reapproximated. Internal mammary harvest site inspected for bleeding. Sternum was closed with wires. Fascia was closed. Subcutaneous tissue was closed. Skin was closed. Dermabond was placed. The needle and sponge counts were reported as correct. The patient was taken to ICU in stable condition. TRANSINT:[id number] Voice Confirmation ID: [id number] DOCUMENT ID: [id number] OPERATIVE REPORT [id number] BILL CARLSON, KIARA Parra MD at 1235 CC: ESPERANZA GEE M.D. and RODNEY MENDES MD [id number] DICTATION DATE: 03/16/20 1719 DEFENSE TRAVEL ADMINISTRATOR: 03/16/20 2358 ADM IN [facility] [address] [id number]
--- NOTE | 2020-03-17 14:57 | NUR ---
CTS DCD BY DR FITZGERALD, SUBSTERNAL DRESSING CHANGED
--- NOTE | 2020-03-17 18:24 | NUR ---
1100 ATE 25% LUNCH TRAY 1630 AMBULATED WITH THERAPY 1730 ATE 25% DINNER TRAY
--- NOTE | 2020-03-17 19:32 | NUR ---
PT RECEIVED UP IN CHAIR WATCHING TV. COMPLAINS OF PAIN WITH PRN MEDICATION GIVEN PER OCT. VITAL SIGNS STABLE. RIGHT IJ SALINE LOCKED. CH[place] DRAIN COMPRESSED, WITH TPM WIRES COILED AND DRESSING C/D/I. CALL LIGHT IN REACH. WILL CONTINUE TO OBSERVE.
--- NOTE | 2020-03-17 23:03 | MORECARE ---
CASE MANAGEMENT DISCHARGE SUMMARY PATIENT: BILL CARLSON UNIT: [id number] ADM DATE: 03/16/20 AGE: 49 : 68 SEX: M ROOM/BED: D.02 AUTHOR: LEONCIO YEE PHYSICIAN: REFERRING PHYSICIAN: KIARA FITZGERALD MD DATE OF SERVICE: 03/17/20 Discharge Plan Patient Name: BILL CARLSON Facility: [facility]:[place] : 1970 Planned Disposition: Home Anticipated Discharge Date: Discharge Date: Expected LOS: Initial Reviewer: [email or web address] Initial Review Date: 03/16/2020 Generated: 03/18/20 12:02 am Comments DCP- Discharge Planning Updated by [email or web address]: La Gustafson on 03/17/20 10:[address] Patient Name: BILL CARLSON Admission Status: Elective Accout number: [id number] Admission Date: 03-16-2020 : 1970 Admission Diagnosis: Attending: KIARA FITZGERALD Current LOS: 1 Anticipated DC Date: Planned Disposition: Home [place] Insurance: [place] PR[place] [facility] Discharge Planning Comments: CM met with patient to complete initial dc planning assessment. CM educated patient on the CM role and verbal consent given by patient to complete assessment. Patient lives at home with family. Patient is independent. At discharge patient plans to return home and feels this is a safe discharge. CM discussed availability of home health, rehab services, and medical equipment. Patient will have family to transport home. Patient denied known discharge needs at this time. CM will continue to follow and will assist as needed with dc plans/needs. Water Main Inspector: La Gustafson DCPIA - Discharge Planning Initial Assessment Updated by [email or web address]: La Gustafson on 03/17/20 11:00 pm * Is the patient Alert and Oriented? Yes * How many steps to enter\exit or inside your home? * PCP CINTHYA * Pharmacy [facility] * Preadmission Environment Home with Family * ADLs Independent * Equipment Cane * Other Equipment WALKER * List name and contact numbers for known caregivers / representatives who currently or will assist patient after discharge: GLENYS NARAYAN [phone] * Verbal permission to speak to the caregivers and representatives has been obtained from the patient. Yes * Community resources currently utilized None * Additional services required to return to the preadmission environment? No * Can the patient safely return to the preadmission environment? Yes * Has this patient been hospitalized within the prior 30 days at any hospital? No Patient Name: BILL CARLSON Page [id number] at 2303 All edits/amendments must be made on the electronic document DICTATION DATE: 03/17/202301 FACILITIES CLERK: KENYATTA 03/17/202301 RPT#: [id number] DC DATE: STATUS: ADM IN [facility] [address] [place] [address] END OF REPORT
[2020-03-18] VITALS (24 sets, daily range): BP systolic 107–131; BP diastolic 69–92
--- NOTE | 2020-03-18 01:45 | NUR ---
PT WITH EYES OPEN WATCHING TV. URINAL EMPTIED. COMPLAINS OF PAIN WITH PRN MEDICATION GIVEN PER MAR. WILL CONTINUE TO OBSERVE.
--- NOTE | 2020-03-18 06:04 | NUR ---
SUBSTERNAL DRESSING CHANGED. PT TOLERATED WELL.
--- NOTE | 2020-03-18 06:32 | NUR ---
BATH GIVEN AND PT UP IN CHAIR. TOLERATED WELL. WILL CONTINUE TO OBSERVE
[2020-03-18 06:42] LABS: HEMATOCRIT 36.2 % (42.0-54.0); HEMOGLOBIN 11.6 g/dL (13.5-17.5); MCH 30.8 pg (26.0-34.0); MEAN PLATELET VOLUME 10.1 fL (7.4-10.4); RBC 3.77 10x6/uL (4.20-6.10); RDW 14.2 % (11.5-14.5); WBC 16.6 10x3/uL (4.8-10.8)
[2020-03-18 06:43] LABS: ALBUMIN 2.7 g/dL (3.4-5.0); ALKALINE PHOSPHATASE 68 U/L (30-120); ALT (SGPT) 23 U/L (10-68); BILIRUBIN - TOTAL 0.61 mg/dL (0.2-1.3); CALC OSMOLALITY 272 mosm/kg (275-300); CARBON DIOXIDE 27.8 mmol/L (21.0-32.0); CHLORIDE - SERUM 103 mmol/L (98-107); GLUCOSE 132 mg/dL (74-106); POTASSIUM - SERUM 3.9 mmol/L (3.5-5.1); PROTEIN - SERUM 5.9 g/dL (6.4-8.2); SODIUM 136 mmol/L (136-145); UREA NITROGEN 11 mg/dL (7-18); eGFR NON AFRICAN AMERICAN 84 mL/min (90-120)
--- NOTE | 2020-03-18 07:35 | NUR ---
SHIFT ASSESSMENT COMPLETE. PATIENT DENIES ANY NEEDS AT THIS TIME. CALL LIGHT WITHIN REACH, BED IN LOW POSITION, AND WILL CONTINUE TO MONITOR.
--- NOTE | 2020-03-18 09:30 | NUR ---
PATIENT STOOD AT CHAIR FOR COUPLE MINUTES WITH MINIMAL ASSISTANCE. PATIENT DENIES ANY DIZZINESS OR OTHER NEEDS AT THIS TIME. CALL LIGHT WITHIN REACH, BED IN LOW POSITION, AND WILL CONTINUE TO MONITOR.
--- NOTE | 2020-03-18 10:36 | NUR ---
Nutrition Follow-up: POD 2 CABG. Tolerating regular diet; reports eating <=50% of breakfast this AM. C/o altered taste. -BM; +flatus. Diet: Regular Wt: 159.6# (03/18); 158# (03/16) Last BM: 03/15 Labs noted: Glu 132, Ca 8.0, Alb 2.7 Meds noted: Micro K, KCl, Colace, Senokot -Encourage PO intake and honor food preferences within diet restrictions. -Monitor wt. -RD following.
--- NOTE | 2020-03-18 11:00 | NUR ---
REASSESSMENT COMPLETE. NO CHANGES FROM PREVIOUS ASSESSMENT.
--- NOTE | 2020-03-18 13:00 | NUR ---
PATIENT SITTING UP IN CHAIR. CONSUMED APPROX 75% OF LUNCH. DENIES ANY NEEDS AT THIS TIME. CALL LIGHT WITHIN REACH, AND WILL CONTINUE TO MONITOR.
--- NOTE | 2020-03-18 15:00 | NUR ---
REASSESSMENT COMPLETE. NO DISTRESS NOTED. CALL LIGHT WITHIN REACH.
--- NOTE | 2020-03-18 17:30 | NUR ---
PATIENT WANTS TO SIT UP IN CHAIR LONGER. CALL LIGHT WITHIN REACH. URINATED APPROX. 600ML OF CL YELLOW URINE.
--- NOTE | 2020-03-18 19:00 | NUR ---
REPORT RECEIVED. PT UP IN CHAIR AT BEDSIDE. STANDY BY ASSIST GIVEN TO BED. PT STATES PAIN AFTER GETTING INTO BED /10. PRN PAIN MEDICATION GIVEN. VITAL SIGNS STABLE. CALL LIGHT IN REACH. WILL CONTINUE TO OBSERVE.
--- NOTE | 2020-03-18 21:20 | NUR ---
SCHEDULED MEDICATIONS GIVNE PT TOLERATED WELL. VITAL SIGNS STABLE. NO NEEDS MADE KNOWN. CALL LIGHT IN REACH. WILL CONTINUE TO OBSERVE.
--- NOTE | 2020-03-18 22:50 | NUR ---
PT RESTING WITH EYES CLOSED AND CHEST RISING. EASILY AWOKEN TO VERBAL STIMULI. VITAL SIGNS STABLE. URINAL EMPTIED. CALL LIGHT IN REACH. WILL CONTINUE TO OBSERVE.
[2020-03-19] VITALS (24 sets, daily range): BP systolic 113–144; BP diastolic 74–95
--- NOTE | 2020-03-19 00:11 | NUR ---
WATER GIVEN PER REQUEST. NO OTHER NEEDS MADE KNOWN. CALL LIGHT IN REACH. WILL CONTINUE TO OBSERVE.
--- NOTE | 2020-03-19 02:43 | NUR ---
PT RESTING WITH EYES CLOSED AND CHEST RISING. NO S/S OF DISTRESS. CALL LIGHT IN REACH. WILL CONTINUE TO OBSERVE.
[2020-03-19 06:10] LABS: HEMATOCRIT 31.9 % (42.0-54.0); HEMOGLOBIN 10.5 g/dL (13.5-17.5); MCH 31.4 pg (26.0-34.0); MCHC 32.9 g/dL (31.0-37.0); MCV 95.5 fL (80.0-100.0); RBC 3.34 10x6/uL (4.20-6.10); RDW 14.1 % (11.5-14.5)
--- NOTE | 2020-03-19 06:49 | NUR ---
SUBSTERNAL DRESSING CHANGED PER PROTOCOL. TOLERATED WELL. UP TO BEDSIDE CHAIR. CALL LIGHT IN REACH. WILL CONTINUE TO OBSERVE.
[2020-03-19 06:59] LABS: ALBUMIN 2.4 g/dL (3.4-5.0); ALKALINE PHOSPHATASE 64 U/L (30-120); ALT (SGPT) 22 U/L (10-68); BILIRUBIN - TOTAL 0.51 mg/dL (0.2-1.3); CALC OSMOLALITY 274 mosm/kg (275-300); CALCIUM 7.7 mg/dL (8.5-10.1); CARBON DIOXIDE 27.5 mmol/L (21.0-32.0); CHLORIDE - SERUM 103 mmol/L (98-107); CREATININE - SERUM 0.8 mg/dL (0.6-1.3); GLUCOSE 114 mg/dL (74-106); POTASSIUM - SERUM 3.3 mmol/L (3.5-5.1); PROTEIN - SERUM 5.6 g/dL (6.4-8.2); SODIUM 137 mmol/L (136-145); UREA NITROGEN 12 mg/dL (7-18); eGFR NON AFRICAN AMERICAN > 90 mL/min (90-120)
--- NOTE | 2020-03-19 07:30 | NUR ---
PATIENT SITTING UP IN CHAIR. BREAKFAST GIVEN. SHIFT ASSESSMENT COMPLETE. NO DISTRESS NOTED. CALL LIGHT WITHIN REACH, BED IN LOW POSITION, AND WILL CONTINUE TO MONITOR.
--- NOTE | 2020-03-19 09:34 | NUR ---
PATIENT UP AND WALKED WITH PT. BACK TO ROOM UP IN CHAIR. TOLERATED WELL.
--- NOTE | 2020-03-19 14:17 | NUR ---
DR FITZGERALD PULLED CHINA DRAIN, PT TOLERATED WELL. NEW DRESSING APPLIED PER MD ORDER.
--- NOTE | 2020-03-19 14:33 | NUR ---
3RD TIME PATIENT IS UP TO BATHROOM FOR BM. PATIENT REQUIRES MINIMAL ASSIST FOR TRANSITIONING.
--- NOTE | 2020-03-19 18:35 | NUR ---
DR. FITZGERALD NOTIFIED OF TEMP OF 102.6, HR >110, AND RR >20. NEW ORDERS WERE RECEIVED.
--- NOTE | 2020-03-19 18:50 | NUR ---
BEDSIDE SHIFT REPORT COMPLETED, SHIFT ASSESSMENT COMPLETED, PT INDEPENDENT AMBULATION AND BATHROOM NEEDS. VSS AFEBRILE, SEE FLOWSHEET WILL CONTINUE TO MONITOR
--- NOTE | 2020-03-19 22:46 | NUR ---
PT STATES "POOP IS BABY POOP GREEN" NOT VISUALIZED BY NURSE, NO PAIN OR TENDERNESS IN ABDOMEN. WILL CONTINUE TO MONITOR - REASSESSMENT COMPLETED SEE FLOWSHEET
--- NOTE | 2020-03-19 23:53 | NUR ---
REASSESSMENT COMPLETED SEE FLOWSHEET
[2020-03-20] VITALS (24 sets, daily range): BP systolic 122–152; BP diastolic 84–101
--- NOTE | 2020-03-20 01:34 | NUR ---
PT TEMP STARTING TO RISE, NSR ON MONITOR, GAVE TYLENOL PRN ORDERED SEE MAR FOR ADMINISTRATION
[2020-03-20 05:06] LABS: HEMATOCRIT 29.8 % (42.0-54.0); HEMOGLOBIN 9.9 g/dL (13.5-17.5); MCH 31.6 pg (26.0-34.0); MCHC 33.2 g/dL (31.0-37.0); MCV 95.2 fL (80.0-100.0); MEAN PLATELET VOLUME 9.8 fL (7.4-10.4); RBC 3.13 10x6/uL (4.20-6.10); RDW 13.7 % (11.5-14.5); WBC 9.1 10x3/uL (4.8-10.8)
[2020-03-20 05:38] LABS: ALBUMIN 2.2 g/dL (3.4-5.0); ALKALINE PHOSPHATASE 75 U/L (30-120); ALT (SGPT) 23 U/L (10-68); BILIRUBIN - TOTAL 0.63 mg/dL (0.2-1.3); CALC OSMOLALITY 276 mosm/kg (275-300); CALCIUM 7.5 mg/dL (8.5-10.1); CARBON DIOXIDE 27.8 mmol/L (21.0-32.0); CHLORIDE - SERUM 104 mmol/L (98-107); CREATININE - SERUM 0.9 mg/dL (0.6-1.3); GLUCOSE 111 mg/dL (74-106); POTASSIUM - SERUM 3.2 mmol/L (3.5-5.1); PROTEIN - SERUM 5.6 g/dL (6.4-8.2); SODIUM 138 mmol/L (136-145); UREA NITROGEN 12 mg/dL (7-18); eGFR NON AFRICAN AMERICAN > 90 mL/min (90-120)
--- NOTE | 2020-03-20 06:30 | NUR ---
PT UP TO CHAIR, ABX INFUSING AT THIS TIME. VSS WILL CONTINUE TO MONITOR
--- NOTE | 2020-03-20 10:30 | NUR ---
Nutrition Follow-up: POD 4 CABG. Eating well. Altered taste improving. Diet: Regular Wt: 159# (03/20); 158# (03/16) Last BM: 03/20 Labs noted: K+ 3.2, Glu 111, Ca 7.5, Alb 2.2 Meds noted: KDur, Senokot, Colace -Monitor wt. -RD following.
--- NOTE | 2020-03-20 11:30 | TEE ---
PATIENT:BILL CARLSON MEDICAL RECORD: [id number] LOCATION:[place] [address] AGE OF PATIENT: 49 ADMISSION DATE: 03/16/20 SEX: M REFERRING PHYSICIAN: INTERPRETING PHYSICIAN: XU OLSEN MD TRANSESOPHAGEAL ECHOCARDIOGRAM Date: 03/16/20 KATHRYN CHARGE Y INDICATIONS: CABG PREMEDICATIONS: PATIENT'S RESPONSE PROCEDURE DOPPLER MEASUREMENTS: LVIT LA PA RA LVOT RVOT Asc. Ao AV Gradient Peak AV Mean AV Area MV Gradient Peak MV Mean MV Area INTERPRETATION: Doppler: 2-D: COLOR FLOW DOPPLER NORMAL SALINE STUDY: MISCELLANOUS: DIAGNOSIS: PLAN: Tax Attorney:3 Dr. Parsons Flap Curer: Austin HANKS COMMENTS: DATE OF SERVICE: 03/19/2020 PROCEDURE: Intraoperative transesophageal echocardiogram. Preop, normal LV internal dimensions, wall motion and function, EF greater than or equal to 55%. Aortic valve is tricuspid and good valve excursion. No significant AI. Left atrium is normal. Mitral valve is normal. Trace MR. Postoperatively, good contractility of all wall segments. EF greater than 50%. TRANSESOPHAGEAL ECHOCARDIOGRAM REPORT [id number] BILL CARLSON Aortic valve appears normal. Mitral valve appears normal. Trivial MR. TRANSINT:[id number] Voice Confirmation ID: [id number] DOCUMENT ID: [id number] at 1130 CC: [id number] DICTATION DATE: 03/19/20819 CONCEPT ARTIST: 03/19/20 1125 ADM IN [address] [id number] [place] [address]
--- NOTE | 2020-03-20 13:44 | NUR ---
1335: IV STARTED WITH 20G ON 1ST ATTEMPT IN R WRIST. 1340: R IJ DC'D. MANUAL PRESSURE HELD X 3 MIN AND SITE DRESSED WITH 2X2 AND TEGADERM.
--- NOTE | 2020-03-20 20:23 | NUR ---
SHIFT ASSESSMENT COMPLETED SEE FLOWSHEET, PT RECEIVED TYLENOL FOR FEVER SINUS TACH ON THE MONITOR - BP ELEVATED AT THIS TIME. SEE MAR FOR MEDICATION ADMINISTRATIONS
[2020-03-21] VITALS (24 sets, daily range): BP systolic 124–159; BP diastolic 78–100
--- NOTE | 2020-03-21 04:33 | NUR ---
PT REQUESTED PRN MEDICATION FOR PAIN FROM ACTIVITY RELATED TO PA/LATS AND INDEPENDENT SPONGE BATH. SEE MAR FOR ADMINISTRATION
--- NOTE | 2020-03-21 06:04 | NUR ---
IV VANC HELD PENDING VANC TROUGH LAB - LAB NOTIFIED FOR VENOUS BLOOD DRAW
[2020-03-21 06:42] LABS: ALBUMIN 2.4 g/dL (3.4-5.0); ALKALINE PHOSPHATASE 112 U/L (30-120); BILIRUBIN - TOTAL 0.52 mg/dL (0.2-1.3); CALC OSMOLALITY 282 mosm/kg (275-300); CALCIUM 7.9 mg/dL (8.5-10.1); CARBON DIOXIDE 27.2 mmol/L (21.0-32.0); CHLORIDE - SERUM 107 mmol/L (98-107); CREATININE - SERUM 0.8 mg/dL (0.6-1.3); GLUCOSE 108 mg/dL (74-106); PROTEIN - SERUM 5.9 g/dL (6.4-8.2); SODIUM 142 mmol/L (136-145); UREA NITROGEN 10 mg/dL (7-18); VANCOMYCIN - TROUGH 4.2 ug/mL (10.0-20.0); eGFR NON AFRICAN AMERICAN > 90 mL/min (90-120)
[2020-03-21 06:43] LABS: ALT (SGPT) 36 U/L (10-68); POTASSIUM - SERUM 3.9 mmol/L (3.5-5.1)
[2020-03-21 06:59] LABS: HEMATOCRIT 32.2 % (42.0-54.0); HEMOGLOBIN 10.6 g/dL (13.5-17.5); MCH 31.5 pg (26.0-34.0); MCHC 32.9 g/dL (31.0-37.0); MCV 95.5 fL (80.0-100.0); MEAN PLATELET VOLUME 9.4 fL (7.4-10.4); RBC 3.37 10x6/uL (4.20-6.10); RDW 13.6 % (11.5-14.5); WBC 8.9 10x3/uL (4.8-10.8)
[2020-03-22] VITALS (23 sets, daily range): BP systolic 117–147; BP diastolic 79–101
[2020-03-22 06:12] LABS: HEMATOCRIT 30.7 % (42.0-54.0); HEMOGLOBIN 10.2 g/dL (13.5-17.5); MCH 31.5 pg (26.0-34.0); MCHC 33.2 g/dL (31.0-37.0); MCV 94.8 fL (80.0-100.0); MEAN PLATELET VOLUME 8.9 fL (7.4-10.4); RBC 3.24 10x6/uL (4.20-6.10); RDW 13.6 % (11.5-14.5); WBC 8.6 10x3/uL (4.8-10.8)
[2020-03-22 06:43] LABS: ALBUMIN 2.2 g/dL (3.4-5.0); ALKALINE PHOSPHATASE 125 U/L (30-120); ALT (SGPT) 42 U/L (10-68); BILIRUBIN - TOTAL 0.49 mg/dL (0.2-1.3); CALC OSMOLALITY 277 mosm/kg (275-300); CALCIUM 8.1 mg/dL (8.5-10.1); CHLORIDE - SERUM 107 mmol/L (98-107); CREATININE - SERUM 0.8 mg/dL (0.6-1.3); GLUCOSE 110 mg/dL (74-106); POTASSIUM - SERUM 3.8 mmol/L (3.5-5.1); PROTEIN - SERUM 5.4 g/dL (6.4-8.2); SODIUM 139 mmol/L (136-145); UREA NITROGEN 9 mg/dL (7-18); eGFR NON AFRICAN AMERICAN > 90 mL/min (90-120)
--- NOTE | 2020-03-22 08:15 | NUR ---
IV R WRIST TENDER AND ERYTHEMATOUS. PAINFUL DURING FLUSHING WITH NS. SITE DC'D. IV RESTARTED ON 2ND ATTEMPT IN R FOREARM WITH 20G.
[2020-03-23] VITALS (13 sets, daily range): BP systolic 121–145; BP diastolic 83–99
[2020-03-23 07:22] LABS: HEMATOCRIT 34.7 % (42.0-54.0); HEMOGLOBIN 11.4 g/dL (13.5-17.5); MCH 31.1 pg (26.0-34.0); MCHC 32.9 g/dL (31.0-37.0); MCV 94.8 fL (80.0-100.0); MEAN PLATELET VOLUME 9.2 fL (7.4-10.4); RBC 3.66 10x6/uL (4.20-6.10); RDW 13.7 % (11.5-14.5); WBC 9.1 10x3/uL (4.8-10.8)
[2020-03-23 07:28] LABS: ALBUMIN 2.5 g/dL (3.4-5.0); ALKALINE PHOSPHATASE 140 U/L (30-120); ALT (SGPT) 46 U/L (10-68); BILIRUBIN - TOTAL 0.49 mg/dL (0.2-1.3); CALC OSMOLALITY 274 mosm/kg (275-300); CALCIUM 8.3 mg/dL (8.5-10.1); CARBON DIOXIDE 28.5 mmol/L (21.0-32.0); CHLORIDE - SERUM 105 mmol/L (98-107); CREATININE - SERUM 0.9 mg/dL (0.6-1.3); GLUCOSE 102 mg/dL (74-106); POTASSIUM - SERUM 3.9 mmol/L (3.5-5.1); PROTEIN - SERUM 6.2 g/dL (6.4-8.2); SODIUM 138 mmol/L (136-145); UREA NITROGEN 9 mg/dL (7-18); VANCOMYCIN - TROUGH 19.5 ug/mL (10.0-20.0); eGFR NON AFRICAN AMERICAN > 90 mL/min (90-120)
[2020-03-23] MEDS ORDERED: LOPRESSOR25 MG PO (09:04)
[2020-03-23] MEDS ORDERED: PERCOCET 5-3251 TAB PO (09:07)
--- NOTE | 2020-03-23 11:03 | NUR ---
Nutrition Follow-up: POD 7 CABG. Eating well. Diet: Regular PO intake: 93% avg x 6 meals Wt: 157# (03/22) Labs reviewed Meds noted: Dominique Be -Monitor wt. -RD following.
[2020-03-23] MEDS ORDERED: LISINOPRIL10 MG PO (13:28)
--- NOTE | 2020-03-23 20:17 | MORECARE ---
CASE MANAGEMENT DISCHARGE SUMMARY PATIENT: BILL CARLSON UNIT: [id number] ADM DATE: 03/16/20 AGE: 49 : 68 SEX: M ROOM/BED: D.02 AUTHOR: JOSELITO,DOC PHYSICIAN: REFERRING PHYSICIAN: KIARA FITZGERALD MD DATE OF SERVICE: 03/23/20 Discharge Plan Patient Name: BILL CARLSON Facility: [facility]:[place] : 1970 Planned Disposition: Home Anticipated Discharge Date: Discharge Date: 03/23/2020 Expected LOS: Initial Reviewer: [email or web address] Initial Review Date: 03/16/2020 Generated: 03/23/20 9:16 pm DCP- Discharge Planning Updated by [email or web address]: La Gustafson on 03/17/20 10:[address] Patient Name: BILL CARLSON Admission Status: Elective Accout number: [id number] Admission Date: 03-16-2020 : 1970 Admission Diagnosis: Attending: KIARA FITZGERALD Current LOS: 1 Anticipated DC Date: Planned Disposition: Home Primary Insurance: [email or web address] [place] PRIVATE OPTIONS [place] Discharge Planning Comments: CM met with patient to complete initial dc planning assessment. CM educated patient on the CM role and verbal consent given by patient to complete assessment. Patient lives at home with family. Patient is independent. At discharge patient plans to return home and feels this is a safe discharge. CM discussed availability of home health, rehab services, and medical equipment. Patient will have family to transport home. Patient denied known discharge needs at this time. CM will continue to follow and will assist as needed with dc plans/needs. Manager Creative Services: La Gustafson DCPIA - Discharge Planning Initial Assessment Updated by [email or web address]: La Gustafson on 03/17/20 11:00 pm * Is the patient Alert and Oriented? Yes * How many steps to enter\exit or inside your home? * PCP CINTHYA * Pharmacy [facility] * Preadmission Environment Home with Family * ADLs Independent * Equipment Cane * Other Equipment WALKER * List name and contact numbers for known caregivers / representatives who currently or will assist patient after discharge: GLENYS NARAYAN [phone] * Verbal permission to speak to the caregivers and representatives has been obtained from the patient. Yes * Community resources currently utilized None * Additional services required to return to the preadmission environment? No * Can the patient safely return to the preadmission environment? Yes * Has this patient been hospitalized within the prior 30 days at any hospital? No Last DP export: 03/17/20 10:03 pm Patient Name: BILL CARLSON Page [id number] at 2017 All edits/amendments must be made on the electronic document DICTATION DATE: 03/23/202016 CART PUSHER: KENYATTA 03/23/20 2017 RPT#: [id number] DC DATE:03/23/20 STATUS: DIS IN [facility] [address] [place] [address] END OF REPORT
== END 2020-03-23 15:21 | disposition home or self-care (01) | DRG 228 ==
LOC: D.MS 03-09 07:30 → D.CVICU 03-16 14:37
PROVIDERS: Internal Medicine Cardiovascular Disease; ADMIT Thoracic Surgery (Cardiothoracic Vascular Surgery); ATTEND Thoracic Surgery (Cardiothoracic Vascular Surgery)
PROC: 02Q00ZZ Repair Coronary Artery, One Artery, Open Approach (ICD-10-PCS; 2020-03-16)
PROC: 021009W Bypass Coronary Artery, One Artery from Aorta with Autologous Venous Tissue, Open Approach (ICD-10-PCS; 2020-03-16)
PROC: 06BP4ZZ Excision of Right Saphenous Vein, Percutaneous Endoscopic Approach (ICD-10-PCS; 2020-03-16)
PROC: B24BZZ4 Ultrasonography of Heart with Aorta, Transesophageal (ICD-10-PCS; 2020-03-16)
PROC: 5A1221Z Performance of Cardiac Output, Continuous (ICD-10-PCS; 2020-03-16)
PROC: 02100Z9 Bypass Coronary Artery, One Artery from Left Internal Mammary, Open Approach (ICD-10-PCS; principal; 2020-03-16 14:05)
DX: I25.10 Atherosclerotic heart disease of native coronary artery without angina pectoris (principal); J18.9 Pneumonia, unspecified organism; J90 Pleural effusion, not elsewhere classified; I25.41 Coronary artery aneurysm; F17.200 Nicotine dependence, unspecified, uncomplicated; I10 Essential (primary) hypertension; I73.9 Peripheral vascular disease, unspecified; E87.6 Hypokalemia; Y95 Nosocomial condition; D64.9 Anemia, unspecified

== ENCOUNTER 2020-03-23 18:01 | Inpatient (IN) | payer MEDICAID ==
[~2020-03-23] VITALS: Ht 172.7 cm; Wt 88.5 kg
[2020-03-23] VITALS (12 sets, daily range): BP systolic 89–128; BP diastolic 60–85; BMI 29.2
[~2020-03-23 18:01] MED LIST changes: +CHANTIX0.5 MG PO; +LISINOPRIL10 MG PO; +LOPRESSOR25 MG PO; +PERCOCET 5-3251 TAB PO; +VITAMIN C500 M1 PO
--- NOTE | 2020-03-23 19:25 | NUR ---
PT TRANSPORTED TO OR BY DR FITZGERALD, HIV/AIDS CARE NURSE, RT AND COOK FISHING VESSEL.
--- NOTE | 2020-03-23 21:10 | NUR ---
PT RECIEVED FROM O.R. VIA BED, PT NONRESPONSIVE TO STIMULI, PUPILS ENLARGED AND NONREACTIVE TO LIGHT, ETT PATENT PLACED TO VENT, LUNGS CLEAR, RIGHT IJ CVL INTACT WITH IVF'S INFUSING, RIGHT RADIAL A-LINE INTACT AND ZEROED, MIDSTERNAL INCISION WITH DRSG CDI, SUBSTERNAL DRSG INTACT WITH CHEST TUBES X3 TO SUCTION WITH BLOODY DRAINAGE, LEFT GROIN CVL AND A-LINE INTACT AND NOT IN USE AT THIS TIME, DUARTE PATENT TO BSD WITH MINIMAL OUTPUT, JONO'S AND SCD'S PLACED TO BILAT LOWER LEGS, BILAT SWR IN USE, WILL CONT TO MONITOR
--- NOTE | 2020-03-23 22:40 | NUR ---
NOTIFIED DR FITZGERALD OF PT LOW URINE OUTPUT, UPDATED ON PT STATUS, ORDERS RECIEVED
[2020-03-24] VITALS (95 sets, daily range): BP systolic 100–135; BP diastolic 39–93; Ht 172.7 cm; Wt 88.5 kg
[2020-03-24 00:28] LABS: INR 1.5 (0.85-1.17)
--- NOTE | 2020-03-24 02:51 | NUR ---
PT REMAINS NONRESPONSIVE WITH PUPILS NONREACTIVE TO LIGHT ACCOMODATION, CONT TO WEAN EPINEPHRINE GTT, VITALS STABLE
--- NOTE | 2020-03-24 04:45 | NUR ---
AM LAB AND ABG'S DRAWN FROM RIGHT RADIAL A-LINE, RT PRESENT, CONT TO WEAN EPI GTT, NONRESPONSIVE TO STIMULI
[2020-03-24 05:44] LABS: HEMATOCRIT 35.6 % (42.0-54.0); HEMOGLOBIN 11.8 g/dL (13.5-17.5); MCH 31.7 pg (26.0-34.0); MCHC 33.1 g/dL (31.0-37.0); MCV 95.7 fL (80.0-100.0); MEAN PLATELET VOLUME 9.3 fL (7.4-10.4); RBC 3.72 10x6/uL (4.20-6.10); RDW 14.3 % (11.5-14.5); WBC 34.9 10x3/uL (4.8-10.8)
[2020-03-24 05:52] LABS: ALBUMIN 1.9 g/dL (3.4-5.0); BILIRUBIN - TOTAL 0.46 mg/dL (0.2-1.3); CARBON DIOXIDE 28.7 mmol/L (21.0-32.0); POTASSIUM - SERUM 3.7 mmol/L (3.5-5.1); PROTEIN - SERUM 4.7 g/dL (6.4-8.2)
[2020-03-24 06:05] LABS: CREATININE - SERUM 2.3 mg/dL (0.6-1.3)
[2020-03-24 06:06] LABS: CALCIUM 6.7 mg/dL (8.5-10.1)
--- NOTE | 2020-03-24 08:24 | OP ---
PATIENT NAME: BILL CARLSON MEDICAL RECORD: [id number] :68 LOCATION:PH[facility] D.CV03 ADMISSION DATE:03/23/20 SURGEON: KIARA FITZGERALD MD DATE OF OPERATION: 03/23/2020 PROCEDURE PERFORMED: Reentry sternotomy, repair of sternal fracture after CPR, mediastinal exploration, and evacuation of bilateral pleural effusions. PREOPERATIVE DIAGNOSIS: Cardiogenic shock. POSTOPERATIVE DIAGNOSIS: Cardiogenic shock, presumed pulmonary embolus. ANESTHESIA: General endotracheal anesthesia. ESTIMATED BLOOD LOSS: 100 cc. CONDITION: Critical. DISPOSITION: ICU. OPERATIVE FINDINGS: The lower end of the sternotomy was opened under direct visualization into the pericardium revealed no pericardial fluid, no tamponade and normal pulsations and good Doppler signal in the right coronary artery graft. The remainder of the sternum was opened. There were sternal fractures due to the CPR. Hemostasis was ensured and the pericardium was opened widely so that the aneurysm site was identified and it was intact as was the internal mammary artery. Both chests were evacuated of about 400-500 cc of serosanguineous fluid and the chest was closed with wires and large chest tubes. PROCEDURE IN DETAIL: This patient was taken to the operating suite after stabilized in the Emergency Room for exploration rewiring. FINDINGS: As above. Sternum rewired. Returned to the ICU. TRANSINT:[id number] Voice Confirmation ID: [id number] DOCUMENT ID: [id number] KIARA FITZGERALD MD at 0824 CC: [id number] DICTATION DATE: 03/23/202051 NUTRITION CLUB AMBASSADOR: 03/24/20 0337 ADM IN [place] [address] [place] [address]
--- NOTE | 2020-03-24 09:10 | NUR ---
0700 PT RECIEVED ON VENT, ETT SECURED, UNRESPONSIVE TO ALL STIMULI, DOES NOT GAG WITH SUCTIONING OR WITHDRAW TO PAIN, R IJ CVL DRESSING CDI, R RADIAL A LINE DRESSING CDI, WRIST PROTECTOR IN PLACE, GOOD WAVEFORM, L GROIN A LINE AND CVL DRESSING CDI, MIDSTERNAL AND SUBSTERNAL DRESSING CDI WITH SUBSTERNAL CTX3 20CM SUCTION NO AIR LEAK BLOODY DRAINAGE, SEE SHIFT ASSESSMENT FOR DETAILS 0800 RIKI DCD AND CONSULTS TO DR NICOLE AND GENE TEMPLE AFTER SPEAKING WITH DR FITZGERALD [address] WITH NURSING STAFF, CT AND RT STAFF
--- NOTE | 2020-03-24 09:47 | NUR ---
PT BACK TO ROOM FROM CT, TEMP 96.3, LUIS CARLOS BRUNSON APPLIED, DR BOYLE NURSE COURTNI AWARE
--- NOTE | 2020-03-24 10:58 | NUR ---
PER DR BOYLE NURSE MALIK, CALLED DR MILLS TO NOTIFY OF CT RESULTS, GLUE DRIER OPERATOR IN ROOM, DR MILLS STATED TO HAVE HER CALL HIM WHEN DONE, NOTIFIED TECH,
--- NOTE | 2020-03-24 12:10 | NUR ---
PTS HERE, REQUESTING IF PTS WERE TO REQUIRE EMERGENCY MEDICATIONS OR CHEST COMPRESSIONS TO LET HIM GO AND CHANGE TO DNR STATUS, WITNESSED BY A WILFRED RN, NOTIFIED DR BOYLE NURSE COURTNI
--- NOTE | 2020-03-24 13:04 | NUR ---
1200 LUIS CARLOS NANNETTE TURNED OFF TEMP 98.[address] MILLS HERE SPOKE WITH PTS AND HER MOTHER, IN AGREEMENT THAT PT WOULD NOT WANT TO CONTINUE CARE, PTS WILL CALL FAMILY TO COME SEE PT AND DECIDE WHEN TO TERMINALLY EXTUBATE, CALL PLACED TO [facility], SPOKE WITH CHRISTINA
--- NOTE | 2020-03-24 13:34 | NUR ---
PTS APPOACHED MYSELF AND ANOTHER NURSE ASKING ABOUT ORGAN DONATION, STATED WOULD NOTIFY [facility], SPOKE WITH LYNN AT [facility] WHO STATED THAT SHE AND ANOTHER WERE HEADING TO THE HOSPITAL TO SPEAK WITH , INFORMED HER THAT WAS ASKING ABOUT DONATIONS, WAS TOLD TO TELL THAT THEY WERE COMING TO SPEAK WITH HER, INFORMED
--- NOTE | 2020-03-24 16:26 | NUR ---
FAMILY SPEAKING WITH [facility] BEAN AND SIGNING PAPERWORK
--- NOTE | 2020-03-24 16:59 | NUR ---
APNEA TEST DONE PER DR NICOLE BM NOTED AFTER TEST, PERICARE AND LINEN CHANGE DONE
--- NOTE | 2020-03-24 17:22 | NUR ---
SPOKE WITH DR MILLS STATED COULD NOT RULE BRAIN FROM EEG, ORDERED NUCLEAR MED BRAIN SCAN TO VERIFY, [facility] TEAM AND PTS AWARE
--- NOTE | 2020-03-24 18:45 | NUR ---
RECIVED REPORT AT BEDSIDE. PT IS INTUBATED NO SEDATION. NO RESPONSE TO PAIN, NO CORNEA REFLEXES NOTED, PUPILS ARE 8MM BILAT WITH NO RESONSE. VSS AT THIS TIME. HE IS ON SARAH DRIP, LEVOPHED AND EPI. RIGHT IJ IS CDI. RIGHT RADIAL A-LINE CDI. DUARTE BELOW PT AND DRAINING YELLOW URINE. HE HAS 3 CHEST TUBES HOOKED TO 20CM OF SUCTION WITH NO AIR LEAKS NOTED, DRAINING BLOODY DRAINAGE. BED IS LOW,SIDE RAISLX2.
--- NOTE | 2020-03-24 19:05 | NUR ---
TRANSPORTED PT TO IR AT THIS TIME. RT, RNX2, AND IR PERONS WITH PT.
--- NOTE | 2020-03-24 19:40 | NUR ---
PT BACK TO ROOM FROM [facility].
--- NOTE | 2020-03-24 20:11 | MORECARE ---
CASE MANAGEMENT DISCHARGE SUMMARY PATIENT: BILL CARLSON UNIT: [id number] ADM DATE: 03/23/20 AGE: 49 : [birth year] SEX: M [facility] AUTHOR: LEONCIO YEE PHYSICIAN: REFERRING PHYSICIAN: KIARA FITZGERALD MD DATE OF SERVICE: 03/24/20 Discharge Plan Patient Name: BILL CARLSON [facility] [facility] 1970 Planned Disposition: Anticipated Discharge Date: Discharge Date: Expected LOS: Initial Reviewer: [email or web address] Initial Review Date: 03/23/2020 Generated: 03/24/20 9:10 pm Comments DCP- Discharge Planning Updated by [email or web address]: La Gustafson on 03/24/20 7:[address] Patient Name: BILL CARLSON Admission Status: ER Accout number: [id number] Admission Date: 03-23-2020 : 1970 Admission Diagnosis: Attending: KIARA FITZGERALD Current LOS: 1 Anticipated DC Date: Planned Disposition: Primary Insurance: [place] [employer] [facility] Discharge Planning Comments: PLANNING TERMINAL EXTUBATION - BENÍTEZ HERE POSSIBLE HARVEST - PENDING TEST RESULTS. Adobe Cq Developer: La Gustafson Patient Name: BILL CARLSON Page [phone] at 2010 All edits/amendments must be made on the electronic document DICTATION DATE: 03/24/202009 CHIEF DRAFTER: KENYATTA 03/24/202009 RPT#: [id number] DC DATE: STATUS: ADM IN [place] [id number] [place] [address] END OF REPORT
--- NOTE | 2020-03-24 20:15 | NUR ---
RADIOLOGSTEVE CALLED AND GAVE REPORT OF CEBRAL BRAIN FLOW THAT THERE NO BLOOD PERFUSION TO THE BRAIN. I WILL CALL AT THIS TIME AND NOTIFY HIM OF RESULTS ALONG WITH
--- NOTE | 2020-03-24 22:29 | NUR ---
PT HAD LARGE LOOSE DARK BROWN BM, ROLLED WITH 2XASSSIT AND CLEANED PT WITH CHG AND PROVIDED ALL NEW LINENS. VSS. BED IS LOW,SIDE RAILSX2.
--- NOTE | 2020-03-24 23:20 | NUR ---
PT IS GOING TO BE DISCHARGED AND RE-ADMITTED TO [facility]
--- NOTE | 2020-03-26 14:25 | EC ---
PATIENT:BILL CARLSON DATE OF SERVICE: 03/23/20 SEX: M MEDICAL RECORD: [id number] DATE OF : [birth year] LOCATION:[place] [address] AGE OF PATIENT: 49 ADMISSION DATE: 03/23/20 REFERRING PHYSICIAN: INTERPRETING PHYSICIAN: XU OLSEN MD ECHOCARDIOGRAM REPORT ECHO CHARGES 5 ECHO LIMITED Date: 03/23/20 CLINICAL DIAGNOSIS: POST RECENT CABG/CODING ASSESS EF AND FOR EFFUSION ECHOCARDIOGRAPHIC MEASUREMENTS (adult normal given) AC root (d.<3.7cm) cm LV Septum d (<1.2 cm> cm Valve Excursion cm LV Septum (systole) cm Left Atria (s.<4.0cm> cm LVPW d(<1.2cm) cm RV (d.<2.3cm) cm LVPW (sytole) cm LV diastole(<5.6CM) cm MV E-F(>70mm/sec) cm LV systole cm LVOT Diameter cm MV exc.(>10mm) cm Est.ejection fraction (50-75%) % DOPPLER: LVIT cm/sec A cm/sec E cm/sec LA cm/sec RVSP mmHg LVOT cm/sec AOP1/2T m/s Asc. Ao cm/sec RVOT cm/sec RA cm/sec PA cm/sec AV Gradient Peak mmHg AV Mean mmHg AV Area cm MV Gradient Peak mmHg MV Mean mmHg MV Area cm COMMENTS: Preliminary School Psychologist: 2 TAWANDA DOSHI Youth Manager: 3 Dr. aPrsons TAPE# PACS Pericardial Effusion N DATE OF SERVICE: Grossly, no LVH. LV internal dimension is normal. 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 Aortic valve shows good valve excursion. Left atrium appears grossly normal. There is trivial MR. Right side appeared grossly normal. NTS:[id number] Voice Confirmation ID: [id number] DOCUMENT ID: [id number] ECHOCARDIOGRAM REPORT [id number] BILL CARLSON IVASERJIO XU OLSEN MD at 1425 CC: [id number] DICTATION DATE: 03/24/20 1258 ECOMMERCE MARKETING SPECIALIST: 03/24/20 2232 DIS IN 03/24/20 [place] [id number] [facility] [place] [address]
== END 2020-03-24 23:17 | DRG 166 ==
LOC: D.ER 18:01 → D.CVICU 21:31
PROVIDERS: ADMIT Thoracic Surgery (Cardiothoracic Vascular Surgery); ATTEND Thoracic Surgery (Cardiothoracic Vascular Surgery)
PROC: 0P800ZZ Division of Sternum, Open Approach (ICD-10-PCS; 2020-03-23)
PROC: 0WJ Anatomical Regions, General, Inspection (ICD-10-PCS; principal; 2020-03-23 19:25)
DX: I26.99 Other pulmonary embolism without acute cor pulmonale (principal); G93.1 Anoxic brain damage, not elsewhere classified; R57.0 Cardiogenic shock

== ENCOUNTER 2020-03-24 23:16 | Inpatient (IN) | payer OTHER ==
[~2020-03-24] VITALS: Ht 172.7 cm; Wt 90.7 kg
--- NOTE | ~2020-03-24 | EEG ---
PATIENT:JEYSON CARLSON MEDICAL RECORD: [id number] DATE OF : [birth year] LOCATION:D.CV0 D.CVI ADMISSION DATE: 03/24/20 REFERRING PHYSICIAN: INTERPRETING PHYSICIAN: JAKE FORD MD DATE OF SERVICE: 03/24/2020 DATE OF EE03/24/2020 ORDERED BY: Dr. Ford. ROOM NUMBER: ICU 3. CASE HISTORY: A 49-year-old male post coronary artery bypass grafting with cardiorespiratory arrest at home, post-discharge to home and now unresponsive on vent without sedation. CT of head demonstrates massive cerebral edema with uncal and cerebellar tonsillar herniation. PROCEDURE: EEG done as a routine bedside portable recording using the standard 10-20 international electrode system. A 16 channel was used with the 17th as EKG. Photic stimulation done as activation procedure. DESCRIPTION: EEG opens with the patient unresponsive on vent with the record displaying markedly depressed amplitudes, diffusely, with very low amplitude theta and delta slowing seen, primarily in the bilateral parietal and temporal regions. No reactivity to external stimuli. Photic stimulation did not yield a photoparoxysmal response. No seizure activity was noted. IMPRESSION: Markedly abnormal EEG with markedly depressed voltage amplitudes diffusely consistent with severe anoxic cerebral injury. PROGNOSIS: Grim for recovery. TRANSINT:[id number] Voice Confirmation ID: [id number] DOCUMENT ID: [id number] JAKE FORD MD CC: [id number] DICTATION DATE: 03/24/201724 FINANCIAL SYSTEMS ANALYST: 03/25/20 0447 ADM IN [facility] [address] [place] [address]
[2020-03-24 23:15] VITALS: BP 105/67
--- NOTE | 2020-03-24 23:20 | NUR ---
PT WAS D/C AND RE-ADMITTED TO [facility] AT THIS TIME. HE IS STILL INTUBATED, VSS AT THIS TIME. WILL DO FULL ASSESSMENT AND DOC IN FLOWSHEET
[2020-03-24 23:30] VITALS: BP 103/66
[2020-03-24 23:45] VITALS: BP 105/67; BP 109/69; Ht 172.7 cm; Wt 90.7 kg
[2020-03-25] VITALS (59 sets, daily range): BP systolic 80–132; BP diastolic 45–97
[2020-03-25 01:39] LABS: BASOPHILS 0.2 % (0-2); EOSINOPHILS 0.9 % (0-7); HEMATOCRIT 31.6 % (42.0-54.0); HEMOGLOBIN 10.3 g/dL (13.5-17.5); IMMATURE GRANULOCYTES 0.3 % (0-5); LYMPHOCYTES 7.4 % (15-50); MCH 31.3 pg (26.0-34.0); MCHC 32.6 g/dL (31.0-37.0); MEAN PLATELET VOLUME 9.3 fL (7.4-10.4); MONOCYTES 5.5 % (2-11); NEUTROPHILS 85.7 % (40-80); PLATELET COUNT 213 10x3/uL (130-400); RBC 3.29 10x6/uL (4.20-6.10); RDW 14.8 % (11.5-14.5); WBC 20.7 10x3/uL (4.8-10.8)
[2020-03-25 01:42] LABS: APTT 31.9 SECONDS (22.8-39.4); INR 1.5 (0.85-1.17); PROTIME 17.9 SECONDS (11.6-15.0)
[2020-03-25 02:00] LABS: ALBUMIN 1.5 g/dL (3.4-5.0); ALKALINE PHOSPHATASE 111 U/L (30-120); ALT (SGPT) 118 U/L (10-68); AMYLASE - SERUM 44 U/L (25-115); BILIRUBIN - DIRECT 0.15 mg/dL (0.00-0.30); BILIRUBIN - INDIRECT 0.21 mg/dL (0.00-1.00); BILIRUBIN - TOTAL 0.36 mg/dL (0.2-1.3); CARBON DIOXIDE 26.2 mmol/L (21.0-32.0); CHLORIDE - SERUM 112 mmol/L (98-107); CKMB 158.3 U/L (0.0-3.6); GLUCOSE 112 mg/dL (74-106); LIPASE 54 U/L (73-393); MAGNESIUM - SERUM 1.8 mg/dL (1.8-2.4); PROTEIN - SERUM 3.6 g/dL (6.4-8.2); SODIUM 151 mmol/L (136-145)
--- NOTE | 2020-03-25 02:00 | NUR ---
PUT IN RECTAL TUBE PER ORDER FROM BENÍTEZ AT THIS TIME. PT VSS.
[2020-03-25 02:02] LABS: CALC OSMOLALITY 309 mosm/kg (275-300); CALCIUM 5.7 mg/dL (8.5-10.1); CREATINE KINASE 1942 UL (21-232); CREATININE - SERUM 3.9 mg/dL (0.6-1.3); POTASSIUM - SERUM 4.5 mmol/L (3.5-5.1); UREA NITROGEN 37 mg/dL (7-18); eGFR NON AFRICAN AMERICAN 17 mL/min (90-120)
[2020-03-25 02:03] LABS: TROPONIN-I 51.074 ng/mL (0.000-0.060)
[2020-03-25 02:41] LABS: BILIRUBIN NEGATIVE (NEGATIVE); GLUCOSE 50 mg/dL (NEGATIVE); KETONE NEGATIVE (NEGATIVE); NITRITE NEGATIVE (NEGATIVE); UROBILINOGEN NORMAL (NORMAL)
[2020-03-25 02:42] LABS: BACTERIA FEW /hpf (NEGATIVE); EPITHELIAL CELLS 0-5 /hpf (0-5); RED CELLS - URINE 0-5 /hpf (0-5)
--- NOTE | 2020-03-25 03:30 | NUR ---
EKG DONE AND PT WENT INTO A.FIB C RVR AT 151 HR. JEYSON DOCTOR CONSULTED BY JEYSON DE LA O. NEW ORDERS GIVEN. WILL PUT IN UNDER ORDERS.
--- NOTE | 2020-03-25 04:45 | NUR ---
EKG DONE AND PT CONVERTED BACK TO NSR AT 99 HR. ALL OTHER VITALS ARE STABLE AT THIS TIME
--- NOTE | 2020-03-25 06:15 | NUR ---
WAS ABLE TO GET EPINEPTHRINE DRIP OFF AT THIS TIME. VSS. BENÍTEZ HAD REQUESTED TO TRY TO GET PT OFF EPINEPHRINE IF POSSIBLE.
--- NOTE | 2020-03-25 07:00 | NUR ---
PT REPORT RECEIVED FROM PROSTHETIC TECHNICIAN NURSE. SHIFT ASSESSMENT COMPLETED. WILL CONTINEU TO MONITOR
[2020-03-25 07:10] LABS: HEMATOCRIT 30.4 % (42.0-54.0); HEMOGLOBIN 9.9 g/dL (13.5-17.5); MCH 31.3 pg (26.0-34.0); MCHC 32.6 g/dL (31.0-37.0); MCV 96.2 fL (80.0-100.0); MEAN PLATELET VOLUME 9.4 fL (7.4-10.4); PLATELET COUNT 177 10x3/uL (130-400); RBC 3.16 10x6/uL (4.20-6.10); RDW 14.8 % (11.5-14.5); WBC 22.3 10x3/uL (4.8-10.8)
[2020-03-25 07:21] LABS: APTT 31.8 SECONDS (22.8-39.4); INR 1.44 (0.85-1.17); PROTIME 17.4 SECONDS (11.6-15.0)
[2020-03-25 07:30] LABS: CARBON DIOXIDE 22.7 mmol/L (21.0-32.0); CHLORIDE - SERUM 111 mmol/L (98-107); GLUCOSE 145 mg/dL (74-106); MAGNESIUM - SERUM 1.9 mg/dL (1.8-2.4); PHOSPHOROUS 6.3 mg/dL (2.5-4.9); SODIUM 151 mmol/L (136-145)
[2020-03-25 07:58] LABS: CALC OSMOLALITY 312 mosm/kg (275-300); CREATINE KINASE 1435 UL (21-232); CREATININE - SERUM 4.2 mg/dL (0.6-1.3); POTASSIUM - SERUM 4.7 mmol/L (3.5-5.1); UREA NITROGEN 41 mg/dL (7-18); eGFR NON AFRICAN AMERICAN 16 mL/min (90-120)
[2020-03-25 07:59] LABS: CALCIUM 6.6 mg/dL (8.5-10.1)
--- NOTE | 2020-03-25 08:00 | NUR ---
ORDER RECEIVED FROM JEYSON FANG TO GIVE ONE TIME DOSE OF 20MG LASIX. GIVEN. WILL CONTINEU TO MONITOR
[2020-03-25 08:29] LABS: LYMPHOCYTES 3 % (15-50); MONOCYTES 1 % (2-11); NEUTROPHILS 90 % (40-80); PLATELET ESTIMATE NORMAL
[2020-03-25 13:18] LABS: ALBUMIN 1.7 g/dL (3.4-5.0); ALKALINE PHOSPHATASE 112 U/L (30-120); ALT (SGPT) 108 U/L (10-68); BILIRUBIN - DIRECT 0.07 mg/dL (0.00-0.30); BILIRUBIN - INDIRECT 0.17 mg/dL (0.00-1.00); BILIRUBIN - TOTAL 0.24 mg/dL (0.2-1.3); CALC OSMOLALITY 309 mosm/kg (275-300); CARBON DIOXIDE 27.7 mmol/L (21.0-32.0); CHLORIDE - SERUM 110 mmol/L (98-107); CREATININE - SERUM 4.6 mg/dL (0.6-1.3); GLUCOSE 139 mg/dL (74-106); PHOSPHOROUS 7.6 mg/dL (2.5-4.9); POTASSIUM - SERUM 5.2 mmol/L (3.5-5.1); SODIUM 150 mmol/L (136-145); UREA NITROGEN 41 mg/dL (7-18); eGFR NON AFRICAN AMERICAN 14 mL/min (90-120)
[2020-03-25 13:20] LABS: BASOPHILS 0.1 % (0-2); EOSINOPHILS 0 % (0-7); HEMATOCRIT 32.2 % (42.0-54.0); HEMOGLOBIN 10.4 g/dL (13.5-17.5); IMMATURE GRANULOCYTES 0.5 % (0-5); LYMPHOCYTES 2.1 % (15-50); MCH 31.7 pg (26.0-34.0); MCHC 32.3 g/dL (31.0-37.0); MCV 98.2 fL (80.0-100.0); MEAN PLATELET VOLUME 9.8 fL (7.4-10.4); MONOCYTES 3.2 % (2-11); NEUTROPHILS 94.1 % (40-80); PLATELET COUNT 235 10x3/uL (130-400); RBC 3.28 10x6/uL (4.20-6.10); RDW 15.1 % (11.5-14.5); WBC 29.6 10x3/uL (4.8-10.8)
[2020-03-25 13:26] LABS: CREATINE KINASE 981 UL (21-232); PROTEIN - SERUM 4.6 g/dL (6.4-8.2)
[2020-03-25 13:27] LABS: CALCIUM 6.7 mg/dL (8.5-10.1); INR 1.47 (0.85-1.17); PROTIME 17.7 SECONDS (11.6-15.0)
[2020-03-25 13:31] LABS: APTT 24.8 SECONDS (22.8-39.4)
--- NOTE | 2020-03-25 14:24 | NUR ---
LUIS CARLOS BRUNSON PLACED ON PT. PT TEMP DOWN TO 95.7. WILL CONTINUE TO MONITOR
--- NOTE | 2020-03-25 19:00 | NUR ---
REPORT RECEIVED FROM DAY SHIFT. NOT SEDATED ON VENT, UNRESPONSIVE. CHEST TUBES PATENT WITH SEROUS DRAINAGE. DUARTE WITH CLEAR YELLOW URINE. VITAL SIGNS STABLE. RECIEVING LEVOPHED, SARAH, AND PLASMALYTE VIA RIGHT IJ. WILL CONTNUE TO OBSERVE.
[2020-03-25 19:30] LABS: BASOPHILS 0.1 % (0-2); EOSINOPHILS 0 % (0-7); HEMATOCRIT 30.4 % (42.0-54.0); HEMOGLOBIN 10.1 g/dL (13.5-17.5); IMMATURE GRANULOCYTES 0.6 % (0-5); MCH 31.7 pg (26.0-34.0); MCHC 33.2 g/dL (31.0-37.0); MCV 95.3 fL (80.0-100.0); MEAN PLATELET VOLUME 9.8 fL (7.4-10.4); MONOCYTES 3.9 % (2-11); NEUTROPHILS 93.4 % (40-80); PLATELET COUNT 242 10x3/uL (130-400); RBC 3.19 10x6/uL (4.20-6.10); RDW 14.8 % (11.5-14.5); WBC 33.7 10x3/uL (4.8-10.8)
[2020-03-25 19:59] LABS: APTT 21.6 SECONDS (22.8-39.4)
[2020-03-25 20:05] LABS: INR 1.31 (0.85-1.17); PROTIME 16.2 SECONDS (11.6-15.0)
[2020-03-25 20:24] LABS: CALC OSMOLALITY 309 mosm/kg (275-300); CARBON DIOXIDE 23.4 mmol/L (21.0-32.0); CHLORIDE - SERUM 110 mmol/L (98-107); CKMB 109.8 U/L (0.0-3.6); CREATININE - SERUM 4.9 mg/dL (0.6-1.3); GLUCOSE 121 mg/dL (74-106); PHOSPHOROUS 6.7 mg/dL (2.5-4.9); SODIUM 150 mmol/L (136-145); UREA NITROGEN 43 mg/dL (7-18); eGFR NON AFRICAN AMERICAN 13 mL/min (90-120)
[2020-03-25 20:26] LABS: CALCIUM 6.8 mg/dL (8.5-10.1); CREATINE KINASE 667 UL (21-232)
--- NOTE | 2020-03-25 20:53 | NUR ---
UA COLLECTED AND SENT TO LAB.
--- NOTE | 2020-03-25 21:42 | NUR ---
CRITICAL CALCIUM RECEIVED. TREATED PER JEYSON NURSE.
[2020-03-25 22:51] LABS: BACTERIA FEW /hpf (NEGATIVE); BILIRUBIN NEGATIVE (NEGATIVE); GLUCOSE NEGATIVE (NEGATIVE); KETONE NEGATIVE (NEGATIVE); NITRITE NEGATIVE (NEGATIVE); RED CELLS - URINE 0-5 /hpf (0-5); UROBILINOGEN NORMAL (NORMAL); WHITE CELLS - URINE 0-5 /hpf (NEGATIVE)
[2020-03-26 01:17] LABS: BASOPHILS 0 % (0-2); EOSINOPHILS 0 % (0-7); HEMATOCRIT 29.2 % (42.0-54.0); HEMOGLOBIN 9.8 g/dL (13.5-17.5); IMMATURE GRANULOCYTES 0.5 % (0-5); LYMPHOCYTES 2.6 % (15-50); MCH 31.6 pg (26.0-34.0); MCHC 33.6 g/dL (31.0-37.0); MCV 94.2 fL (80.0-100.0); MEAN PLATELET VOLUME 9.8 fL (7.4-10.4); MONOCYTES 3.3 % (2-11); NEUTROPHILS 93.6 % (40-80); PLATELET COUNT 249 10x3/uL (130-400); RDW 14.7 % (11.5-14.5); WBC 34.8 10x3/uL (4.8-10.8)
[2020-03-26 01:27] LABS: CALC OSMOLALITY 311 mosm/kg (275-300); CARBON DIOXIDE 22.8 mmol/L (21.0-32.0); CHLORIDE - SERUM 111 mmol/L (98-107); CREATININE - SERUM 5.1 mg/dL (0.6-1.3); GLUCOSE 130 mg/dL (74-106); POTASSIUM - SERUM 4.6 mmol/L (3.5-5.1); SODIUM 150 mmol/L (136-145); UREA NITROGEN 47 mg/dL (7-18); eGFR NON AFRICAN AMERICAN 13 mL/min (90-120)
[2020-03-26 01:30] LABS: INR 1.29 (0.85-1.17)
[2020-03-26 01:31] LABS: APTT 31.4 SECONDS (22.8-39.4)
[2020-03-26 01:43] LABS: ALBUMIN 1.5 g/dL (3.4-5.0); ALKALINE PHOSPHATASE 113 U/L (30-120); ALT (SGPT) 88 U/L (10-68); BILIRUBIN - DIRECT 0.08 mg/dL (0.00-0.30); BILIRUBIN - INDIRECT 0.22 mg/dL (0.00-1.00); CKMB 33.5 U/L (0.0-3.6); MAGNESIUM - SERUM 2.1 mg/dL (1.8-2.4); PHOSPHOROUS 6.9 mg/dL (2.5-4.9); PROTEIN - SERUM 4.3 g/dL (6.4-8.2)
[2020-03-26 01:44] LABS: CREATINE KINASE 438 UL (21-232)
--- NOTE | 2020-03-26 05:28 | NUR ---
PT TO SURGERY WITH JEYSON NURSE. FAMILY HAS LEFT UNIT.
--- NOTE | 2020-03-26 06:48 | NUR ---
CROSS CLAMPED AT 0641
== END 2020-03-26 05:15 | DRG 951 ==
LOC: D.CVICU 23:16
PROVIDERS: ADMIT Thoracic Surgery (Cardiothoracic Vascular Surgery); ATTEND Thoracic Surgery (Cardiothoracic Vascular Surgery)
DX: Z52.9 Donor of unspecified organ or tissue (principal)